=== PATIENT | female | born 1950 | race Caucasian/White ===

== ENCOUNTER → 2018-03-19 08:48 | Outpatient (POV) | payer MEDICARE, SELFPAY | PROVIDERS: Visit Provider Nurse Practitioner Acute Care | DX: Z00.00 Encounter for general adult medical examination without abnormal findings (principal) ==

== ENCOUNTER → 2018-11-20 08:49 | Outpatient (CLI) | payer MEDICARE, SELFPAY ==
--- NOTE | 2018-11-20 08:53 | XR_ITS ---
PROCEDURE: XR DEXA AXIAL SKELETON CLINICAL HISTORY: HEALING OF CLOSED FX LT HAND, POST MENOPAUSAL COMPARISON: No exams were available for comparison TECHNIQUE: FINDINGS: L1-L4 density is 1.463 grams/centimeters sq with a T-score of 2.4. The lowest hip density is in the right femoral neck at 0.979 grams/centimeters sq with a T-score of -0.4. Incidental note of lumbar scoliosis convex right IMPRESSION: Normal bone density with low fracture risk. Suggest follow-up exam in 2 years Dictated by: Corey Mcdonald MD 11/20/2018 10:08 Signed by: <Electronically signed by Corey Mcdonald MD in [place]> 11/20/2018 10:08
== END ==
PROVIDERS: PCP Family Medicine; Visit Provider Family Medicine
DX: Z78.0 Asymptomatic menopausal state (principal); S62.92XD Unspecified fracture of left hand, subsequent encounter for fracture with routine healing
CPT/HCPCS: 77080

== ENCOUNTER → 2018-11-21 12:30 | Outpatient (CLI) | payer MEDICARE, SELFPAY ==
[2018-11-22 11:02] LABS: Adenovirus F 40/41, stool Not Detected (NotDetected); Astrovirus Not Detected (NotDetected); Campylobacter Not Detected (NotDetected); Clostridium Difficile A/B, PCR Not Detected (NotDetected); Cryptosporidium Not Detected (NotDetected); Cyclospora Cayetanesis Not Detected (NotDetected); Entamoeba histolytica Not Detected (NotDetected); Enteroaggregative E coli Not Detected (NotDetected); Enteropathogenic E coli Not Detected (NotDetected); Enterotoxigenic E coli Not Detected (NotDetected); Giardia lamblia Not Detected (NotDetected); Norovirus Not Detected (NotDetected); Plesimonas Shigalloides, PCR Not Detected (NotDetected); Rotavirus A Not Detected (NotDetected); Salmonella, PCR Not Detected (NotDetected); Sapovirus Not Detected (NotDetected); Shiga-like toxin E coli Not Detected (NotDetected); Shigella Enterovasive E coli Not Detected (NotDetected); Vibrio Cholerae Not Detected (NotDetected); Vibrio, PCR Not Detected (NotDetected); Yersinia Entercolitica, PCR Not Detected (NotDetected)
== END ==
PROVIDERS: Visit Provider Nurse Practitioner Family
DX: R19.4 Change in bowel habit (principal); R19.7 Diarrhea, unspecified
CPT/HCPCS: 87506

== ENCOUNTER → 2018-12-31 15:37 | Outpatient (POV) | payer MEDICARE, SELFPAY | PROVIDERS: PCP Family Medicine; Visit Provider Nurse Practitioner Family | DX: Z00.00 Encounter for general adult medical examination without abnormal findings (principal) ==

== ENCOUNTER → 2019-04-08 11:47 | Outpatient (POV) | payer MEDICARE, SELFPAY | PROVIDERS: Visit Provider Nurse Practitioner Family | DX: Z00.00 Encounter for general adult medical examination without abnormal findings (principal) ==

== ENCOUNTER → 2019-09-09 07:15 | Outpatient (CLI) | payer MEDICARE, SELFPAY ==
--- NOTE | 2019-09-09 | CA_ITS ---
APPROVED REPORT Exam: Pharmacologic Technologist: ,, Ht: 5 ft 1 in Wt: 165 lbs BSA: 1.74 m2 HR: 49 bpm BP: 186/78 mmHg Indications: CP, SOB Medical History Medications: Omeprazole,,,,, Clonidine,,,,, Propranolol,,,,, Effexor,,,,, Estradiol,,,,, Tramadol,,,,, Tizanidine,,,,, Hydroxyzine,,,,, Xyzal,,,,, Geodon,,,,, Simvatatin,,,,, Allergies: Antibotics Cardiac Risk Factors: HTN, Hyperlipidemia, FHX of CAD Stress Test Details Test: LEXISCAN HR Resting HR: 48 bpm Max Heart Rate (APMHR): 150 bpm Max HR Achieved: 81 bpm Target HR (85% APMHR): 127 bpm % of APMHR: 54 Recovery HR: 71 bpm BP Resting BP: 186/78 mmHg Max BP: 190/79 mmHg Recovery BP: 159.0/78.0 mmHg ECG Resting ECG: Sinus Allan (Abn EKG) Clinical Exercise duration: 04:00 min Highest Stage Achieved: Exercise capacity: 1.0 METs Stress ECG Conclusion Lexiscan portion completed. Only complaint was SOB that resolved during recovery. No ectopy. Less than 1.5mm ST Depression. Images to follow. Electronically signed by : Jay Serra, 09/09/2019 18:25:39
--- NOTE | 2019-09-09 07:22 | NM_ITS ---
APPROVED REPORT Exam: Nuclear Stress Test Indication: Chest pain, SOB, HTN, High cholesterol, Family history Patient Location: Outpatient Stress Tech: Cheli Gutierres [place] Tech:Lorrie Garnett, ARRT, RT (R)(N) Ht: 5 ft 1 in Wt: 165 lbs Bra Size: 38C HR: 49 bpm BP: 186/78 mmHg BSA: 1.74 m2 BMI: 31.1 History: Chest pain, SOB, HTN, High cholesterol, Family history Procedure: Patient received a 0.4 mg of intravenous Lexiscan, resting heart rate 49 bpm, resting blood pressure 186/78 mmHg, with Lexiscan maximum heart rate achived was 80 bpm which is Less than 85 % of the maximum predicted heart rate and blood pressure was 144/74 mmHg. With Lexiscan, patient denied any complaint of chest pain. Electrocardiogram Resting electrocardiogram shows sinus rhythm, with Lexiscan there is less than 1.[address] segment depression noted from the baseline EKG. The EKG portion of the Lexiscan is nondiagnostic. Cardiac Stress and Resting SPECT Images: Cardiac Stress and Resting SPECT images were obtained using technetium 99m Myoview 31.4 mCi stress and 10.11 mCi at rest. Gated SPECT for the analysis of segmental wall motion and calculation of the ejection fraction also done. Cardiac stress and resting SPECT images show mild defect in the anterior wall with normal contractility gated SPECT is likely secondary to soft tissue attenuation, no reversible ischemia seen. Computer derived ejection fraction is 48% with no regional wall motion abnormality, right ventricle is normal size and contractility. Conclusion: 1. The EKG portion of the Lexiscan is Myoview is nondiagnostic. 2. No scintigraphic evidence of reversible ischemia seen, fixed defect in the anterior wall with normal contracted gated SPECT is likely secondary to soft tissue attenuation, computer derived ejection fraction is 48% with no segmental wall motion abnormality, right ventricle is normal size and contractility. 3. Likely normal Lexiscan Myoview study. Electronically signed by : Jay Serra, 09/09/2019 18:53:13
--- NOTE | 2019-09-09 07:44 | HMH.ITSHM ---
Current Home Medications as stated by this patient Jackie Cook or service liaison representative. []VENLAFAXINE VITAMINS LISINOPRIL ESTRADIOL CLONIDINE DOXEPIN LEVOCETIRIZINE ZIPROSIDONE HYDROXEZINE POTASSIUM PROPRANOLOL SIMVASTATIN TRAMADOL DICYCLOMINE TIZANIDINE FLUZICASONE
== END ==
PROVIDERS: PCP Family Medicine; Visit Provider Family Medicine
DX: R07.2 Precordial pain (principal)
CPT/HCPCS: 78454; 93017; A9502; J2785

== ENCOUNTER → 2021-05-19 09:45 | Outpatient (CLI) | payer MEDICARE, SELFPAY ==
--- NOTE | 2021-05-19 09:53 | XR_ITS ---
FINAL REPORT TECHNIQUE: Bone densitometry calculations of the lumbar spine and left hip were obtained. CLINICAL HISTORY: post menopausal FINDINGS: Using L1-4, the bone mineral density of the spine is 1.251 g/cm2, corresponding to T-score of 1.9. Using the left hip, the bone mineral density of the femoral neck is 0.884 g/cm2, corresponding to a T-score of 0.3. Using the right hip, the bone mineral density of the femoral neck is 0.882 g/cm2, corresponding to a T-score of 0.3. IMPRESSION: Normal bone mineral density of the lumbar spine and hips. Reviewed, Interpreted and Dictated by Yang Garvin III, MD Transcribed by Gena Mendez Authenticated by Yang Garvin III, MD on 05/19/2021 12:29:58 PM [facility]
== END ==
PROVIDERS: PCP Family Medicine; Visit Provider Family Medicine
DX: Z78.0 Asymptomatic menopausal state (principal)
CPT/HCPCS: 77080

== ENCOUNTER → 2021-09-22 07:21 | Outpatient (CLI) | payer MEDICARE, SELFPAY ==
[2021-09-21 19:46] LABS: Basophils # 0.1 K/mm3 (0-0.2); Basophils % 1.7 % (0.1-2.0); Eosinophils # 0.3 K/mm3 (0.0-0.4); Eosinophils % 5.5 % (0.1-12.0); Hematocrit 45.3 % (37.0-47.0); Hemoglobin 13.4 g/dL (12.2-16.2); Lymphocytes # 2.9 K/mm3 (0.7-4.5); Lymphocytes % 47.4 % (10-50); Mean Corpuscular HGB Conc 29.6 g/dL (31.8-35.4); Mean Corpuscular Hemoglobin 28.9 pg (27.0-31.2); Mean Corpuscular Volume 97.6 fl (81-99); Mean Platelet Volume 8.3 fl (7.4-10.4); Monocytes # 0.5 K/mm3 (0.1-1.0); Monocytes % 8.3 % (1.7-9.3); Neutrophils # 2.3 K/mm3 (1.8-7.8); Neutrophils % 37.2 % (37.0-80.0); Platelet Count 323 K/mm3 (142-424); Red Blood Count 4.64 M/mm3 (4.20-5.40); Red Cell Distribution Width 13.3 % (11.5-17.5); White Blood Count 6.1 K/mm3 (4.8-10.8)
[2021-09-21 20:11] LABS: Thyroid Stimulating Hormone 2.32 uIU/mL (0.465-4.68)
[2021-09-21 20:21] LABS: Hemoglobin A1C 6.1 % (4.0-6.0)
== END ==
PROVIDERS: PCP Nurse Practitioner; Visit Provider Nurse Practitioner
DX: E11.9 Type 2 diabetes mellitus without complications (principal); Z79.84 Long term (current) use of oral hypoglycemic drugs
CPT/HCPCS: 83036; 84443; 85025

== ENCOUNTER → 2021-10-01 09:10 | Outpatient (CLI) | payer MEDICARE, OTHER, SELFPAY ==
--- NOTE | 2021-10-01 09:12 | CA_ITS ---
FINAL REPORT CLINICAL HISTORY: postural dizziness with presyncope FINDINGS: An ultrasound of the carotid arteries was performed. Duplex Doppler evaluation with spectral analysis was performed. The peak systolic velocity of the right common carotid artery is 81 cm/s. The peak systolic velocity of the right internal carotid artery is 70 cm/s and end diastolic velocity 22 cm/s. A mild amount of plaque is present. The right external carotid artery is patent. The right vertebral artery is patent with antegrade flow. The peak systolic velocity of the left common carotid artery is 104 cm/s. The peak systolic velocity of the left internal carotid artery is 83 cm/s and end diastolic velocity 25 cm/s. A mild amount of plaque is present. The left external carotid artery is patent. The left vertebral artery is patent with antegrade flow. IMPRESSION: Less than 50% bilateral carotid stenoses. Bilateral patent vertebral arteries with antegrade flow. Reviewed, Interpreted and Dictated by Orlin Segal MD Transcribed by Umesh Medina Authenticated and [facility]
--- NOTE | 2021-10-01 09:12 | CA_ITS ---
APPROVED REPORT EXAM: Comprehensive 2D, Doppler, and color-flow Echocardiogram Material Planning Analyst: Larissa Hyatt RDCS Ht: 5 ft 1 in Wt: 144lbs BSA: 1.64 BP: 124/68 mmHg Indications: SYNCOPE,HTN,HLP 2D Dimensions LVOT 1.79 cm (M/F) 1.5-2.5 M-Mode Dimensions RVDd 2.50 cm (0.9-2.6) LA Diam 4.13 cm (1.9-4.0) LVDd 5.18 cm (3.5-5.7) Ao Diam 2.69 cm (2.0-3.7) LVDs 3.53 cm (3.5-5.7) IVSd 0.64 cm (0.6-1.1) PWd 0.75 cm (0.6-1.1) EF (Teich) 59.60% FS 31.90% EDV (Teich) 128.40 mL TAPSE 1.70 (<1.7) ESV (Teich) 51.90 mL LV Diastology E Decel Time 173.00 (160-240 msec) E/A Ratio 0.8 MED E' 7.20 (< 7 cm/sec) E'/MED E' Ratio 8.51 (>14) LAT E' 6.80 (<10 cm/sec) E/LAT E' Ratio 9.01 (>14) Mitral Valve MV E Max Jone. 61.00 (40-130 cm/s) MV A Velocity 79.00 (40-130 cm/s) E/A Ratio 0.77 MV Decel. Time 173.00 (160-240 ms) MV PHT 51.00 ms Left Ventricle Left atrium is mildly enlarged, left ventricle is normal size mild concentric left ventricular hypertrophy, estimated ejection fraction 55% with no regional wall motion abnormality, grade 1 diastolic dysfunction seen without tissue Doppler evidence of raise left atrial pressure. Right Ventricle Right atrium and right ventricle are normal size and contractility. Aortic Valve Aortic valve is minimally thickened and fibrosed there is no aortic stenosis aortic insufficiency. Mitral Valve Mitral valve leaflets are minimally thickened, there is mild mitral regurgitation. Tricuspid Valve Tricuspid valve grossly normal, there is mild tricuspid regurgitation, tricuspid regurgitation jet velocity is inadequate for calculation of the right ventricular systolic pressure. Pulmonic Valve Pulmonic valve is poorly visualized. Great Vessels Aortic root is normal size. Inferior vena cava is poorly visualized. Pericardium No significant pericardial effusion noted. Conclusion 1. Mildly enlarged left atrium, normal left ventricular size, mild concentric left ventricular hypertrophy, estimated ejection fraction 55% with no regional wall motion abnormality, grade 1 diastolic dysfunction seen without tissue Doppler evidence of raise left atrial pressure. 2. Mild mitral and tricuspid regurgitation. 3. No significant pericardial effusion noted. 4. Inferior vena cava is poorly visualized. Electronically signed by : Jay Serra MD 10/01/2021 15:14:12
== END ==
PROVIDERS: PCP Family Medicine; Visit Provider Nurse Practitioner
DX: R42 Dizziness and giddiness (principal); R55 Syncope and collapse
CPT/HCPCS: 93306; 93880

== ENCOUNTER → 2021-12-13 06:16 | Outpatient (CLI) | payer MEDICARE, SELFPAY | PROVIDERS: PCP Family Medicine; Visit Provider Family Medicine | DX: N30.90 Cystitis, unspecified without hematuria (principal); B96.1 Klebsiella pneumoniae [K. pneumoniae] as the cause of diseases classified elsewhere | CPT/HCPCS: 87086; 87088; 87186 ==

== ENCOUNTER → 2021-12-20 13:52 | Outpatient (CLI) | payer MEDICARE, SELFPAY | PROVIDERS: PCP Family Medicine; Visit Provider Family Medicine | DX: N39.0 Urinary tract infection, site not specified (principal); B96.1 Klebsiella pneumoniae [K. pneumoniae] as the cause of diseases classified elsewhere | CPT/HCPCS: 87086; 87088; 87186 ==

== ENCOUNTER → 2022-02-22 15:25 | Outpatient (CLI) | payer MEDICARE, SELFPAY ==
[2022-02-22 18:48] LABS: Adenovirus,PCR Not Detected (NotDetected); Bordetella Pertussis Not Detected (NotDetected); Chlamydophila Pneumoniae, PCR Not Detected (NotDetected); Coronavirus 19, PCR Not Detected (NotDetected); Coronavirus 229E Not Detected (NotDetected); Coronavirus NL63 Not Detected (NotDetected); Coronavirus OC43 Not Detected (NotDetected); Coronovirus HKU1,PCR Not Detected (NotDetected); Human Metapneumovirus Not Detected (NotDetected); Influenza A, PCR Not Detected (NotDetected); Influenza AH1, 2009 Not Detected (NotDetected); Influenza AH1, PCR Not Detected (NotDetected); Influenza AH3,PCR Not Detected (NotDetected); Influenza B, PCR Not Detected (NotDetected); Mycoplasma Pneumoniae, PCR Not Detected (NotDetected); Parainfluenza 1, PCR Not Detected (NotDetected); Parainfluenza 2, PCR Not Detected (NotDetected); Parainfluenza 3, PCR Not Detected (NotDetected); Parainfluenza 4, PCR Not Detected (NotDetected); Rhinovirus/Enterovirus Not Detected (NotDetected)
[2022-02-23 07:38] LABS: Respiratory Syncytial Virus Detected (NotDetected)
== END ==
PROVIDERS: PCP Nurse Practitioner; Visit Provider Nurse Practitioner
DX: J11.1 Influenza due to unidentified influenza virus with other respiratory manifestations (principal); B97.4 Respiratory syncytial virus as the cause of diseases classified elsewhere
CPT/HCPCS: 87581; 87632; 87798; C9803; U0003; U0005

== ENCOUNTER → 2022-02-28 10:30 | Outpatient (CLI) | payer MEDICARE, SELFPAY ==
[2022-02-28 20:33] LABS: Alanine Aminotransferase 18 U/L (12-78); Albumin Level 4.1 g/dl (3.5-5.0); Albumin/Globulin Ratio 1.9 (1.1-1.8); Alkaline Phosphatase 80 U/L (38-126); Anion Gap 12.3 mEq/L (5-15); Aspartate Amino Transferase 29 U/L (14-36); Bilirubin,Total 0.4 mg/dl (0.2-1.3); Blood Urea Nitrogen 20 mg/dl (7-17); Calcium 9.7 mg/dl (8.4-10.2); Carbon Dioxide 26 mmol/L (22.0-30.0); Chloride 106 mmol/L (98-107); Chol/HDL Ratio 4.2 (1-3.5); Cholesterol 123 mg/dl (140-200); Estimated Glomerular Filt Rate 49 ml/min (>60); GFR (African American) 59 ML/MIN (>60); Globulin 2.2 g/dL (1.3-3.2); Glucose 99 mg/dl (74-100); HDL Cholesterol 29 mg/dl (40-60); Potassium 4.3 mmoL/L (3.5-5.1); Sodium 140 mmol/L (136-145); Total Protein,Serum 6.3 g/dl (6.3-8.2); Triglycerides 165 mg/dl (30-150); VLDL Cholesterol 33 mg/dL (0-40)
[2022-02-28 20:44] LABS: Direct LDL Cholesterol 60.53 mg/dL (100-129)
[2022-02-28 20:57] LABS: Hemoglobin A1C 6.3 % (4.0-6.0)
[2022-02-28 21:04] LABS: Thyroid Stimulating Hormone 0.16 uIU/mL (0.465-4.68)
== END ==
PROVIDERS: PCP Family Medicine; Visit Provider Family Medicine
DX: F41.8 Other specified anxiety disorders (principal); I10 Essential (primary) hypertension; Z00.00 Encounter for general adult medical examination without abnormal findings; E11.9 Type 2 diabetes mellitus without complications; Z79.84 Long term (current) use of oral hypoglycemic drugs
CPT/HCPCS: 80053; 80061; 83036; 84443

== ENCOUNTER → 2022-03-30 11:15 | Outpatient (CLI) | payer MEDICARE, SELFPAY | PROVIDERS: PCP Nurse Practitioner; Visit Provider Nurse Practitioner | DX: N39.0 Urinary tract infection, site not specified (principal); B95.2 Enterococcus as the cause of diseases classified elsewhere | CPT/HCPCS: 87086; 87088; 87186 ==

== ENCOUNTER → 2022-04-14 07:05 | Outpatient (CLI) | payer MEDICARE, SELFPAY | PROVIDERS: PCP Nurse Practitioner; Visit Provider Nurse Practitioner | DX: N10 Acute pyelonephritis (principal) ==

== ENCOUNTER → 2022-04-14 20:14 | Outpatient (CLI) | payer MEDICARE, SELFPAY ==
[2022-04-14 20:31] LABS: Microscopic, Urine URINE MICROSCOPIC (MICROSCOPIC)
[2022-04-14 20:34] LABS: Appearance,Urine CLEAR (Clear); Bilirubin,Urine Negative (Negative); Blood, Urine Negative (Negative); Color,Urine YELLOW (Yellow); Glucose,Urine (UA) 3+ (Negative); Ketones,Urine Negative (Negative); Leukocyte Esterase,Urine 1+ (Negative); Nitrate,Urine Negative (Negative); PH,Urine 6.5 (5.0-8.5); Protein,Urine Negative (Negative); Specific Gravity, Urine 1.015 (1.005-1.030); Urobilinogen,Urine 0.2 EU/dl (0.2)
[2022-04-14 21:00] LABS: Bacteria,Urine 3+ /lpf; Squamous Epithelial Cell,Urine Occasional #/hpf (0-5); Yeast,Urine 1+ /lpf
== END ==
PROVIDERS: PCP Nurse Practitioner; Visit Provider Nurse Practitioner
DX: N10 Acute pyelonephritis (principal); B96.29 Other Escherichia coli [E. coli] as the cause of diseases classified elsewhere
CPT/HCPCS: 81001; 87086; 87088; 87186

== ENCOUNTER → 2022-05-03 23:23 | Outpatient (CLI) | payer MEDICARE, SELFPAY | PROVIDERS: PCP Nurse Practitioner; Visit Provider Nurse Practitioner | DX: R30.0 Dysuria (principal); B96.29 Other Escherichia coli [E. coli] as the cause of diseases classified elsewhere | CPT/HCPCS: 87086; 87088; 87186 ==

== ENCOUNTER → 2022-05-18 15:17 | Outpatient (CLI) | payer MEDICARE, SELFPAY ==
[2022-05-18 18:20] LABS: Microscopic, Urine URINE MICROSCOPIC (MICROSCOPIC)
[2022-05-18 22:26] LABS: Appearance,Urine CLEAR (Clear); Bilirubin,Urine Negative (Negative); Blood, Urine Negative (Negative); Color,Urine YELLOW (Yellow); Glucose,Urine (UA) 3+ (Negative); Ketones,Urine Negative (Negative); Leukocyte Esterase,Urine TRACE (Negative); Nitrate,Urine Negative (Negative); Protein,Urine Negative (Negative); Urobilinogen,Urine 0.2 EU/dl (0.2)
[2022-05-18 22:47] LABS: Bacteria,Urine Trace /lpf; Yeast,Urine 1+ /lpf
== END ==
PROVIDERS: PCP Family Medicine; Visit Provider Family Medicine
DX: N39.0 Urinary tract infection, site not specified (principal); R30.0 Dysuria
CPT/HCPCS: 81001; 87086

== ENCOUNTER → 2022-06-01 23:49 | Outpatient (CLI) | payer MEDICARE, SELFPAY | PROVIDERS: PCP Nurse Practitioner; Visit Provider Nurse Practitioner | DX: N30.90 Cystitis, unspecified without hematuria (principal); B96.29 Other Escherichia coli [E. coli] as the cause of diseases classified elsewhere | CPT/HCPCS: 87086; 87088; 87186 ==

== ENCOUNTER → 2022-06-15 11:30 | Outpatient (CLI) | payer MEDICARE, SELFPAY | PROVIDERS: PCP Nurse Practitioner; Visit Provider Nurse Practitioner | DX: N39.0 Urinary tract infection, site not specified (principal); B96.29 Other Escherichia coli [E. coli] as the cause of diseases classified elsewhere | CPT/HCPCS: 87086; 87088; 87186 ==

== ENCOUNTER → 2022-07-22 15:15 | Outpatient (CLI) | payer MEDICARE, SELFPAY | PROVIDERS: PCP Family Medicine; Visit Provider Family Medicine | DX: N39.0 Urinary tract infection, site not specified (principal); B96.1 Klebsiella pneumoniae [K. pneumoniae] as the cause of diseases classified elsewhere | CPT/HCPCS: 87086; 87088; 87186 ==

== ENCOUNTER → 2022-08-22 11:13 | Outpatient (CLI) | payer MEDICARE, SELFPAY | PROVIDERS: PCP Nurse Practitioner; Visit Provider Nurse Practitioner | DX: N39.0 Urinary tract infection, site not specified (principal) ==

== ENCOUNTER → 2022-11-30 08:39 | Outpatient (CLI) | payer MEDICARE, SELFPAY ==
[2022-11-11 18:06] LABS: Basophils # 0.1 K/mm3 (0-0.2); Basophils % 0.7 % (0.1-2.0); Eosinophils # 0.3 K/mm3 (0.0-0.4); Eosinophils % 4.1 % (0.1-12.0); Hemoglobin 13.7 g/dL (12.2-16.2); Lymphocytes # 3.2 K/mm3 (0.7-4.5); Lymphocytes % 47.6 % (10-50); Mean Corpuscular HGB Conc 32.5 g/dL (31.8-35.4); Mean Corpuscular Hemoglobin 30.5 pg (27.0-31.2); Mean Platelet Volume 8.5 fl (7.4-10.4); Monocytes # 0.6 K/mm3 (0.1-1.0); Monocytes % 8.9 % (1.7-9.3); Neutrophils # 2.6 K/mm3 (1.8-7.8); Neutrophils % 38.8 % (37.0-80.0); Platelet Count 319 K/mm3 (142-424); Red Blood Count 4.47 M/mm3 (4.20-5.40); Red Cell Distribution Width 13.3 % (11.5-17.5); White Blood Count 6.6 K/mm3 (4.8-10.8)
[2022-11-11 18:26] LABS: Alanine Aminotransferase 23 U/L (12-78); Albumin Level 4.5 g/dl (3.5-5.0); Alkaline Phosphatase 66 U/L (38-126); Aspartate Amino Transferase 36 U/L (14-36); Bilirubin,Total 0.4 mg/dl (0.2-1.3); Blood Urea Nitrogen 25 mg/dl (7-17); Calcium 9.7 mg/dl (8.4-10.2); Carbon Dioxide 28 mmol/L (22.0-30.0); Chloride 103 mmol/L (98-107); Chol/HDL Ratio 4.1 (1-3.5); Cholesterol 157 mg/dl (140-200); Estimated Glomerular Filt Rate 37 ml/min (>60); GFR (African American) 45 ML/MIN (>60); Globulin 2.3 g/dL (1.3-3.2); Glucose 61 mg/dl (74-100); HDL Cholesterol 38 mg/dl (40-60); Sodium 142 mmol/L (136-145); Total Protein,Serum 6.8 g/dl (6.3-8.2); Triglycerides 140 mg/dl (30-150); VLDL Cholesterol 28 mg/dL (0-40)
[2022-11-11 18:37] LABS: Direct LDL Cholesterol 87.47 mg/dL (100-129)
[2022-11-11 19:12] LABS: Hemoglobin A1C 5.7 % (4.0-6.0)
== END ==
PROVIDERS: PCP Family Medicine; Visit Provider Family Medicine
DX: E11.9 Type 2 diabetes mellitus without complications (principal); Z79.84 Long term (current) use of oral hypoglycemic drugs
CPT/HCPCS: 80053; 80061; 83036; 85025

== ENCOUNTER → 2022-12-08 23:35 | Outpatient (CLI) | payer MEDICARE, SELFPAY ==
[2022-12-08 20:15] LABS: T4 (Thyroxine) 7.5 ug/dl (5.53-11.0)
[2022-12-08 20:29] LABS: Thyroid Stimulating Hormone 0.13 uIU/mL (0.465-4.68)
== END ==
PROVIDERS: PCP Family Medicine; Visit Provider Family Medicine
DX: F41.8 Other specified anxiety disorders (principal)
CPT/HCPCS: 84436; 84443

== ENCOUNTER → 2023-03-06 07:03 | Outpatient (CLI) | payer MEDICARE, SELFPAY ==
[2023-03-06 19:01] LABS: Free T4 (Free Thyroxine) 1.04 ng/dl (0.78-2.19)
[2023-03-06 19:16] LABS: Thyroid Stimulating Hormone 0.03 uIU/mL (0.465-4.68)
[2023-03-08 08:17] LABS: Thyroid Peroxidase Antibodies 14 IU/mL (0-34); Triiodothyronine (T3) Free 2.5 pg/mL (2.0-4.4); Triiodothyronine (T3) Total 100 ng/dL (71-180)
== END ==
PROVIDERS: PCP Nurse Practitioner; Visit Provider Nurse Practitioner
DX: R41.3 Other amnesia (principal); R79.89 Other specified abnormal findings of blood chemistry; J06.9 Acute upper respiratory infection, unspecified; U07.1 COVID-19
CPT/HCPCS: 84439; 84443; 84480; 84481; 86376; 87635

== ENCOUNTER 2023-08-03 10:00 | Outpatient (CLI) | payer MEDICARE, SELFPAY ==
[2023-08-03 18:11] LABS: Basophils # 0.1 K/mm3 (0-0.2); Basophils % 0.8 % (0.1-2.0); Eosinophils # 0.3 K/mm3 (0.0-0.4); Eosinophils % 3.5 % (0.1-12.0); Hematocrit 35.9 % (37.0-47.0); Hemoglobin 11.6 g/dL (12.2-16.2); Lymphocytes # 2.6 K/mm3 (0.7-4.5); Lymphocytes % 33.3 % (10-50); Mean Corpuscular HGB Conc 32.5 g/dL (31.8-35.4); Mean Corpuscular Hemoglobin 30.6 pg (27.0-31.2); Mean Corpuscular Volume 94.3 fl (81-99); Mean Platelet Volume 8.1 fl (7.4-10.4); Monocytes # 0.6 K/mm3 (0.1-1.0); Monocytes % 7.2 % (1.7-9.3); Neutrophils # 4.3 K/mm3 (1.8-7.8); Neutrophils % 55.2 % (37.0-80.0); Platelet Count 297 K/mm3 (142-424); Red Cell Distribution Width 15.2 % (11.5-17.5); White Blood Count 7.7 K/mm3 (4.8-10.8)
[2023-08-03 18:45] LABS: Alanine Aminotransferase 20 U/L (12-78); Albumin/Globulin Ratio 1.9 (1.1-1.8); Alkaline Phosphatase 67 U/L (38-126); Anion Gap 12.1 mEq/L (5-15); Aspartate Amino Transferase 29 U/L (14-36); Bilirubin,Total 0.4 mg/dl (0.2-1.3); Blood Urea Nitrogen 21 mg/dl (7-17); Calcium 9.6 mg/dl (8.4-10.2); Carbon Dioxide 25 mmol/L (22.0-30.0); Chloride 105 mmol/L (98-107); Chol/HDL Ratio 2.9 (1-3.5); Cholesterol 152 mg/dl (140-200); Estimated Glomerular Filt Rate 49 ml/min (>60); GFR (African American) 59 ML/MIN (>60); Globulin 2.1 g/dL (1.3-3.2); Glucose 119 mg/dl (74-100); HDL Cholesterol 53 mg/dl (40-60); Potassium 4.1 mmoL/L (3.5-5.1); Sodium 138 mmol/L (136-145); Total Protein,Serum 6.1 g/dl (6.3-8.2); Triglycerides 121 mg/dl (30-150); VLDL Cholesterol 24 mg/dL (0-40)
[2023-08-03 18:56] LABS: Direct LDL Cholesterol 82.34 mg/dL (100-129)
[2023-08-03 19:01] LABS: T4 (Thyroxine) 6.9 ug/dl (5.53-11.0)
[2023-08-03 19:14] LABS: Thyroid Stimulating Hormone 0.02 uIU/mL (0.465-4.68)
[2023-08-03 20:47] LABS: Hemoglobin A1C 5.9 % (4.0-6.0)
== END 2023-08-03 23:59 | disposition home or self-care (01) ==
LOC: LAB.DROPOF 08-04 10:00
PROVIDERS: PCP Family Medicine; Visit Provider Family Medicine
DX: I10 Essential (primary) hypertension (principal); E11.9 Type 2 diabetes mellitus without complications; E78.2 Mixed hyperlipidemia; R79.89 Other specified abnormal findings of blood chemistry; Z79.84 Long term (current) use of oral hypoglycemic drugs; Z87.891 Personal history of nicotine dependence
CPT/HCPCS: 80053; 80061; 83036; 84436; 84443; 85025

== ENCOUNTER 2023-10-09 19:27 | Outpatient (CLI) | payer MEDICARE, SELFPAY ==
[2023-10-09 19:28] LABS: Basophils # 0.1 K/mm3 (0-0.2); Basophils % 0.9 % (0.1-2.0); Eosinophils # 0.2 K/mm3 (0.0-0.4); Eosinophils % 2.8 % (0.1-12.0); Hematocrit 39.3 % (37.0-47.0); Hemoglobin 12.8 g/dL (12.2-16.2); Lymphocytes % 43.1 % (10-50); Mean Corpuscular HGB Conc 32.4 g/dL (31.8-35.4); Mean Corpuscular Hemoglobin 31.2 pg (27.0-31.2); Mean Corpuscular Volume 96.2 fl (81-99); Mean Platelet Volume 8.6 fl (7.4-10.4); Monocytes # 0.6 K/mm3 (0.1-1.0); Monocytes % 8.8 % (1.7-9.3); Neutrophils # 3.1 K/mm3 (1.8-7.8); Neutrophils % 44.4 % (37.0-80.0); Platelet Count 344 K/mm3 (142-424); Red Blood Count 4.09 M/mm3 (4.20-5.40); Red Cell Distribution Width 14.5 % (11.5-17.5)
[2023-10-09 19:36] LABS: Alanine Aminotransferase 17 U/L (12-78); Albumin Level 4.2 g/dl (3.5-5.0); Albumin/Globulin Ratio 1.9 (1.1-1.8); Alkaline Phosphatase 59 U/L (38-126); Anion Gap 11.5 mEq/L (5-15); Aspartate Amino Transferase 26 U/L (14-36); Bilirubin,Total 0.5 mg/dl (0.2-1.3); Blood Urea Nitrogen 24 mg/dl (7-17); Calcium 9.8 mg/dl (8.4-10.2); Carbon Dioxide 25 mmol/L (22.0-30.0); Chloride 106 mmol/L (98-107); Estimated Glomerular Filt Rate 44 ml/min (>60); GFR (African American) 53 ML/MIN (>60); Globulin 2.2 g/dL (1.3-3.2); Glucose 99 mg/dl (74-100); Potassium 4.5 mmoL/L (3.5-5.1); Sodium 138 mmol/L (136-145); Total Protein,Serum 6.4 g/dl (6.3-8.2)
[2023-10-09 20:01] LABS: Thyroid Stimulating Hormone < 0.02 uIU/mL (0.465-4.68)
[2023-10-09 20:49] LABS: Hemoglobin A1C 5.8 % (4.0-6.0)
== END 2023-10-09 23:59 | disposition home or self-care (01) ==
LOC: LAB 19:29
PROVIDERS: PCP Nurse Practitioner; Visit Provider Nurse Practitioner
DX: E11.9 Type 2 diabetes mellitus without complications (principal); I10 Essential (primary) hypertension; R30.0 Dysuria; R42 Dizziness and giddiness
CPT/HCPCS: 80050; 80053; 83036; 84443; 85025; 87086

== ENCOUNTER 2024-02-05 13:52 | Emergency (ER) | payer MEDICARE, SELFPAY ==
--- NOTE | 2024-02-05 13:58 | CT_ITS ---
PROCEDURE INFORMATION: Exam: CT Thoracic Spine Without Contrast Exam date and time: 02/05/2024 3:24 PM Age: 73 years old Clinical indication: Injury or trauma; Additional info: Trauma, critical injury suspected TECHNIQUE: Imaging protocol: Computed tomography of the thoracic spine without contrast. Total images: 281 Radiation optimization: All CT scans at this facility use at least one of these dose optimization techniques: automated exposure control; mA and/or kV adjustment per patient size (includes targeted exams where dose is matched to clinical indication); or iterative reconstruction. COMPARISON: CT THORACIC SPINE WO CON 02/05/2024 3:24 PM FINDINGS: Bones/joints: Moderate degenerative changes of the thoracic spine. No evidence of acute fracture. Disc space narrowing and hypertrophic bony changes noted anteriorly at all visualized levels. Slight leftward curvature of the thoracic spine. Soft tissues: Unremarkable. IMPRESSION: 1. Moderate degenerative changes of the thoracic spine. 2. No evidence of acute fracture. 3. Disc space narrowing and hypertrophic bony changes noted anteriorly at all visualized levels.
--- NOTE | 2024-02-05 13:58 | CT_ITS ---
PROCEDURE INFORMATION: Exam: CTA Chest With Contrast Exam date and time: 02/05/2024 3:40 PM Age: 73 years old Clinical indication: Injury or trauma; Additional info: Trauma, critical injury suspected TECHNIQUE: Imaging protocol: Computed tomographic angiography of the chest with contrast. Exam focused on the arteries. 3D rendering (Not supervised by radiologist): MIP and/or 3D reconstructed images were created by the technologist. Total images: 990 Radiation optimization: All CT scans at this facility use at least one of these dose optimization techniques: automated exposure control; mA and/or kV adjustment per patient size (includes targeted exams where dose is matched to clinical indication); or iterative reconstruction. Contrast material: ISOVUE 370; Contrast volume: 80 ml; Contrast route: INTRAVENOUS (IV); COMPARISON: CT ANGIO ABDOMEN PELVIS 02/05/2024 3:40 PM FINDINGS: Pulmonary arteries: No evidence of pulmonary embolism. Aorta: No evidence of aortic dissection. Other arteries: Mild atherosclerotic disease. Lungs: Unremarkable. No consolidation. No masses. Pleural spaces: No evidence of pneumothorax. No pleural effusions. Heart: Unremarkable. No cardiomegaly. No pericardial effusion. Coronary arteries: There is mild atherosclerotic calcification of the coronary arteries. Lymph nodes: Calcified hilar lymph nodes noted bilaterally. Intraperitoneal space: Abdominal findings reported separately. Bones/joints: Postoperative changes of the left shoulder. The thoracic spine demonstrates moderate degenerative changes at multiple levels. Soft tissues: Unremarkable. IMPRESSION: 1. No evidence of pulmonary embolism. 2. No evidence of aortic dissection.
--- NOTE | 2024-02-05 13:58 | CT_ITS ---
PROCEDURE INFORMATION: Exam: CTA Neck With Contrast Exam date and time: 02/05/2024 3:34 PM Age: 73 years old Clinical indication: Injury or trauma; Additional info: Trauma, critical injury suspected TECHNIQUE: Imaging protocol: Computed tomographic angiography of the neck with contrast. Exam focused on the cervical segments of the vasculature. 3D rendering (Not supervised by radiologist): MIP and/or 3D reconstructed images were created by the technologist. Radiation optimization: All CT scans at this facility use at least one of these dose optimization techniques: automated exposure control; mA and/or kV adjustment per patient size (includes targeted exams where dose is matched to clinical indication); or iterative reconstruction. Contrast material: ISOVUE 370; Contrast volume: 80 ml; Contrast route: INTRAVENOUS (IV); COMPARISON: CT ANGIO NECK 02/05/2024 3:34 PM FINDINGS: Right common carotid artery: No stenosis. No dissection or occlusion. Right internal carotid artery: No stenosis of the extracranial segment. No dissection or occlusion. Right external carotid artery: No occlusion or stenosis of the origin. Left common carotid artery: No stenosis. No dissection or occlusion. Left internal carotid artery: No stenosis of the extracranial segment. No dissection or occlusion. Left external carotid artery: No occlusion or stenosis of the origin. Right vertebral artery: No stenosis. No dissection or occlusion. Left vertebral artery: No stenosis. No dissection or occlusion. Other arteries: The vessels in the chest will be discussed in better detail on the CT angio chest examination. Please see that report. Soft tissues: Normal. No significant soft tissue swelling. Bones/joints: No acute fracture. Lungs: The lung apices will be discussed in the CT angiogram chest report. Please see that dictation. IMPRESSION: No stenosis or occlusion. REFERENCES: NASCET CRITERIA. The degree of stenosis in the cervical segment of the internal carotid artery is based on NASCET criteria. Normal is no stenosis. Mild is less than 50% stenosis. Moderate is 50-69% stenosis. Severe is 70% to 99% stenosis. Total occlusion is no detectable patent lumen.
--- NOTE | 2024-02-05 13:58 | CT_ITS ---
PROCEDURE INFORMATION: Exam: CT Lumbar Spine Without Contrast Exam date and time: 02/05/2024 3:27 PM Age: 73 years old Clinical indication: Injury or trauma; Additional info: Trauma, critical injury suspected TECHNIQUE: Imaging protocol: Computed tomography of the lumbar spine without contrast. Total images: 368 Radiation optimization: All CT scans at this facility use at least one of these dose optimization techniques: automated exposure control; mA and/or kV adjustment per patient size (includes targeted exams where dose is matched to clinical indication); or iterative reconstruction. COMPARISON: CT LUMBAR SPINE WO CON 02/05/2024 3:27 PM FINDINGS: Bones/joints: Rightward curvature of the lumbar spine. The lumbar spine demonstrates moderate degenerative changes at multiple levels. Grade 1 spondylolisthesis of L4 on L5. Moderate disc space narrowing noted at all visualized levels. No evidence of acute fracture. Vasculature: Mild atherosclerotic disease. Soft tissues: Posterior soft tissue hematoma noted within the left posterior soft tissues. IMPRESSION: 1. Rightward curvature of the lumbar spine. 2. The lumbar spine demonstrates moderate degenerative changes at multiple levels. 3. Grade 1 spondylolisthesis of L4 on L5. 4. No evidence of acute fracture. 5. Posterior soft tissue hematoma noted within the left posterior soft tissues.
--- NOTE | 2024-02-05 13:58 | CT_ITS ---
PROCEDURE INFORMATION: Exam: CT Cervical Spine Without Contrast Exam date and time: 02/05/2024 3:20 PM Age: 73 years old Clinical indication: Injury or trauma; Additional info: Trauma, critical injury suspected TECHNIQUE: Imaging protocol: Computed tomography of the cervical spine without contrast. Radiation optimization: All CT scans at this facility use at least one of these dose optimization techniques: automated exposure control; mA and/or kV adjustment per patient size (includes targeted exams where dose is matched to clinical indication); or iterative reconstruction. COMPARISON: 1. CT CERVICAL SPINE WO CON 02/05/2024 3:[address] HEAD/BRAIN WO CON 02/05/2024 3:17 PM FINDINGS: Bones: Fracture through the floor of the left occipital bone which intersects the posterior aspect of the left jugular foramen as noted on the earlier CT brain redemonstrated.. This fracture also extends to the posterior left side of the foramen magnum and also extends through the clivus. No other fracture of the cervical spine identified. Advanced degenerative changes at the C3-C4 through C5-C6 level with bulging disc spur complexes and cabgopfa-[id number] central canal narrowing noted. Vertebral body heights intact. Lungs: Lung apices are normal. Soft tissues: Unremarkable. IMPRESSION: 1. Basilar skull fractures involving the left occipital bone including the left jugular foramen and extending through the clivus noted. No other cervical fracture identified. 2. Advanced degenerative changes with multilevel [id number]-[id number]-[id number] central canal narrowing.
--- NOTE | 2024-02-05 13:58 | XR_ITS ---
PROCEDURE INFORMATION: Exam: XR Pelvis Exam date and time: 02/05/2024 3:51 PM Age: 73 years old Clinical indication: Injury or trauma; Fall; Blunt trauma (contusions or hematomas); Does not apply; Pelvic region TECHNIQUE: Imaging protocol: Radiologic exam of the pelvis. Views: 1 or 2 view. COMPARISON: CT ANGIO ABDOMEN PELVIS 02/05/2024 3:40 PM FINDINGS: Bones/joints: Unremarkable. No acute fracture. Soft tissues: Unremarkable. IMPRESSION: No acute findings.
--- NOTE | 2024-02-05 13:58 | CT_ITS ---
PROCEDURE INFORMATION: Exam: CTA Abdomen and Pelvis With Contrast Exam date and time: 02/05/2024 3:40 PM Age: 73 years old Clinical indication: Injury or trauma; Additional info: Trauma, critical injury suspected TECHNIQUE: Imaging protocol: Computed tomographic angiography of the abdomen and pelvis with contrast. Exam focused on the arteries. 3D rendering (Not supervised by radiologist): MIP and/or 3D reconstructed images were created by the technologist. Total images: 990 Radiation optimization: All CT scans at this facility use at least one of these dose optimization techniques: automated exposure control; mA and/or kV adjustment per patient size (includes targeted exams where dose is matched to clinical indication); or iterative reconstruction. Contrast material: ISOVUE 370; Contrast volume: 80 ml; Contrast route: INTRAVENOUS (IV); COMPARISON: CT ANGIO ABDOMEN PELVIS 02/05/2024 3:40 PM FINDINGS: Diaphragm: Small hiatal hernia. Aorta: No evidence of aortic dissection. Celiac trunk and mesenteric arteries: No occlusion or significant stenosis. Renal arteries: No occlusion or significant stenosis. Right iliac arteries: No occlusion or significant stenosis. Left iliac arteries: No occlusion or significant stenosis. Liver: There is a diffuse decrease in hepatic parenchymal density, consistent with mild fatty infiltration. Gallbladder and biliary ducts: Status post cholecystectomy. Pancreas: Unremarkable. No mass. No ductal dilation. Spleen: Unremarkable. No splenomegaly. Adrenal glands: Unremarkable. No mass. Kidneys and ureters: Unremarkable. No solid mass. No hydronephrosis. Stomach and bowel: Large amount of stool is present throughout the colon. Appendix: No evidence of appendicitis. Intraperitoneal space: Unremarkable. No free air. No significant fluid collection. Lymph nodes: No mesenteric or retroperitoneal lymphadenopathy. Urinary bladder: Unremarkable. No mass. Reproductive: Unremarkable as visualized. Bones/joints: Rightward curvature of the lumbar spine with degenerative changes. Grade 1 spondylolisthesis of L4 on L5. Soft tissues: 3.2 cm hematoma noted within the right gluteus muscle with soft tissue edematous changes also noted. IMPRESSION: 1. No evidence of aortic dissection. 2. There is a diffuse decrease in hepatic parenchymal density, consistent with mild fatty infiltration. 3. No mesenteric or retroperitoneal lymphadenopathy. 4. 3.2 cm hematoma noted within the right gluteus muscle with soft tissue edematous changes also noted. 5. Grade 1 spondylolisthesis of L4 on L5.
--- NOTE | 2024-02-05 13:58 | CT_ITS ---
PROCEDURE INFORMATION: Exam: CT Pelvis Without Contrast, Skeleton Exam date and time: 02/05/2024 3:31 PM Age: 73 years old Clinical indication: Injury or trauma; Additional info: Trauma, critical injury suspected TECHNIQUE: Imaging protocol: Computed tomography of the pelvis without contrast. Exam focused on the skeleton. Total images: 324 Radiation optimization: All CT scans at this facility use at least one of these dose optimization techniques: automated exposure control; mA and/or kV adjustment per patient size (includes targeted exams where dose is matched to clinical indication); or iterative reconstruction. COMPARISON: CT BONY PELVIS 02/05/2024 3:31 PM FINDINGS: Bones/joints: No evidence of acute fracture or dislocation. Degenerative changes of both hips. Degenerative changes of both SI joints. Surgical clip noted within the left superior pubic ramus. Soft tissues: Posterior soft tissue hematoma noted on the left. IMPRESSION: 1. No evidence of acute fracture or dislocation. 2. Degenerative changes of both hips. 3. Posterior soft tissue hematoma noted on the left.
--- NOTE | 2024-02-05 13:58 | XR_ITS ---
PROCEDURE INFORMATION: Exam: XR Chest Exam date and time: 02/05/2024 3:51 PM Age: 73 years old Clinical indication: Injury or trauma; Fall; Blunt trauma (contusions or hematomas) TECHNIQUE: Imaging protocol: Radiologic exam of the chest. Views: 1 view. Total images: 1 COMPARISON: CT ANGIO CHEST 02/05/2024 3:40 PM FINDINGS: Lungs: Mild interstitial prominence bilaterally. Pleural spaces: No evidence of pneumothorax. No pleural effusions. Heart/Mediastinum: Heart demonstrates mild diffuse enlargement. Bones/joints: Postoperative changes of the left shoulder. Degenerative changes of the glenohumeral and acromioclavicular joints. The thoracic spine demonstrates mild degenerative changes at multiple levels. IMPRESSION: 1. Mild cardiomegaly. 2. Mild interstitial prominence bilaterally. 3. Degenerative changes of the glenohumeral and acromioclavicular joints.
--- NOTE | 2024-02-05 13:58 | CT_ITS ---
PROCEDURE INFORMATION: Exam: CT Head Without Contrast Exam date and time: 02/05/2024 3:17 PM Age: 73 years old Clinical indication: Injury or trauma; Additional info: Trauma, critical injury suspected TECHNIQUE: Imaging protocol: Computed tomography of the head without contrast. Radiation optimization: All CT scans at this facility use at least one of these dose optimization techniques: automated exposure control; mA and/or kV adjustment per patient size (includes targeted exams where dose is matched to clinical indication); or iterative reconstruction. COMPARISON: No relevant prior studies available. FINDINGS: Brain: There is subarachnoid hemorrhage as well as subdural hemorrhage involving the left frontal region as well as the right frontal and temporal regions. Subdural hematomas extending along the right small amount of intraparenchymal hemorrhage is seen involving the right frontal and lobes measuring up to 6 mm. Small amount of subdural blood is noted on the left measuring 3 mm thick. This is within the frontal region. Small amount of blood does extend to the anterior part of the interhemispheric fissure. Mild to moderate atrophy and small-vessel ischemic disease is noted. Cerebral ventricles: There is 1 mm of leftward midline shift with no intraventricular blood. Paranasal sinuses: Visualized sinuses are unremarkable. No fluid levels. Mastoid air cells: Visualized mastoid air cells are well aerated. Bones: There is a fracture noted involving the left occipital bone. Soft tissues: There is diffuse scalp hemorrhage superficial to the occipital bone fracture. IMPRESSION: 1. Intracranial hemorrhage in the form of subdural, intraparenchymal and subarachnoid blood. This is more extensive on the right than the left. 2. Left occipital bone skull fracture. 3. Trace midline shift to the left.
--- NOTE | 2024-02-05 13:58 | CT_ITS ---
PROCEDURE INFORMATION: Exam: CTA Head With Contrast, Arteriography Exam date and time: 02/05/2024 3:34 PM Age: 73 years old Clinical indication: Injury or trauma; Additional info: Trauma, critical injury suspected TECHNIQUE: Imaging protocol: Computed tomographic angiography of the head with contrast. Exam focused on the arteries. 3D rendering (Not supervised by radiologist): MIP and/or 3D reconstructed images were created by the technologist. Radiation optimization: All CT scans at this facility use at least one of these dose optimization techniques: automated exposure control; mA and/or kV adjustment per patient size (includes targeted exams where dose is matched to clinical indication); or iterative reconstruction. Contrast material: ISOVUE 370; Contrast volume: 80 ml; Contrast route: INTRAVENOUS (IV); COMPARISON: CT ANGIO HEAD 02/05/2024 3:34 PM FINDINGS: ANTERIOR CIRCULATION: Right internal carotid artery: A small focal posttraumatic injury to the intra cavernous portion of the right internal carotid artery is suggested on image 2/335 06/16/2036. Also image 602/49 with a small pseudoaneurysm question extending laterally measuring 1.3 mm deep and 3.3 mm in length. Wall irregularity is identified involving the posterior aspect of the wall. A small pseudoaneurysm is question just posterior to the wall injury. Right middle cerebral artery: No occlusion or significant stenosis. No aneurysm. Right anterior cerebral artery: No occlusion or significant stenosis. No aneurysm. Left internal carotid artery: Intracranial segment is patent with no significant stenosis. No aneurysm. Left middle cerebral artery: No occlusion or significant stenosis. No aneurysm. Left anterior cerebral artery: No occlusion or significant stenosis. No aneurysm. POSTERIOR CIRCULATION: Right vertebral artery: No occlusion or significant stenosis. No aneurysm. Left vertebral artery: No occlusion or significant stenosis. No aneurysm. Basilar artery: No occlusion or significant stenosis. No aneurysm. Right posterior cerebral artery: No occlusion or significant stenosis. No aneurysm. Left posterior cerebral artery: There is a moderate to severe stenosis involving the P1 segment of the left posterior cerebral artery. Brain: Please see the head CT. Cerebral ventricles: No ventriculomegaly. Bones/joints: Unremarkable. No acute fracture. Soft tissues: Unremarkable. IMPRESSION: 1. Suspect a vascular injury involving the cavernous portion of the right distal internal carotid artery with a small irregular flap and questionable posterior pseudoaneurysm. 2. 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 3. Definitely be prison
--- NOTE | 2024-02-05 14:01 | ECG_ITS ---
APPROVED REPORT Exam: Resting ECG HR:68 bpm ECG Measurements Heart Rate 68 AXES VA 175 P -1 QRSd 93 QRS 33 QT 394 T -11 QTc 412 Conclusion SINUS RHYTHM NONSPECIFIC ST & T-WAVE ABNORMALITY BORDERLINE ECG UNCONFIRMED REPORT Electronically signed by : LYNN GARRETT, 02/06/2024 06:47:58
[2024-02-05] MEDS: ACETAMINOPHEN 1,000MG/100ML VIAL 1000 MG IV (14:09)
[2024-02-05] MEDS: TET/DIPHTH/PERT-ADULT 0.5ML SYRINGE 0.5 ML IM (14:09)
--- NOTE | 2024-02-05 14:10 | XR_ITS ---
PROCEDURE INFORMATION: Exam: XR Right Hand Exam date and time: 02/05/2024 3:51 PM Age: 73 years old Clinical indication: Injury or trauma; Fall; Blunt trauma (contusions or hematomas); Hand; Right; Additional info: Fall, pain TECHNIQUE: Imaging protocol: Radiologic exam of the right hand. Views: 3 or more views. Total images: 3 COMPARISON: No relevant prior studies available. FINDINGS: Bones/joints: Degenerative changes of the interphalangeal and 1st carpometacarpal joints. Bones are osteopenic. No evidence of acute fracture or dislocation. Soft tissues: Soft tissues are within normal limits. IMPRESSION: 1. Degenerative changes of the interphalangeal and 1st carpometacarpal joints. 2. Bones are osteopenic. 3. No evidence of acute fracture or dislocation.
[2024-02-05 14:11] VITALS: BP 166/72; PULSE 76; RESP 16; TEMP 36.6; O2SAT 100; BMI 25.6
[2024-02-05 14:20] LABS: Basophils # 0.1 K/mm3 (0-0.2); Eosinophils # 0.2 K/mm3 (0.0-0.4); Eosinophils % 3.2 % (0.1-12.0); Hematocrit 35.5 % (37.0-47.0); Hemoglobin 12.3 g/dL (12.2-16.2); Lymphocytes # 2.3 K/mm3 (0.7-4.5); Mean Corpuscular HGB Conc 34.6 g/dL (31.8-35.4); Mean Corpuscular Hemoglobin 31.6 pg (27.0-31.2); Mean Corpuscular Volume 91.3 fl (81-99); Mean Platelet Volume 7.5 fl (7.4-10.4); Monocytes # 0.5 K/mm3 (0.1-1.0); Monocytes % 7.6 % (1.7-9.3); Neutrophils # 3.8 K/mm3 (1.8-7.8); Neutrophils % 55.2 % (37.0-80.0); Platelet Count 303 K/mm3 (142-424); Red Blood Count 3.89 M/mm3 (4.20-5.40); Red Cell Distribution Width 13.1 % (11.5-17.5)
--- NOTE | 2024-02-05 14:22 | PC.NURSE ---
I called Shanika, the pts sister, at her request. Shanika talked to Jackie who asked her to call their brother Delvin.
[2024-02-05 14:31] VITALS: BP 129/59; PULSE 75; RESP 18; O2SAT 100
--- NOTE | 2024-02-05 14:38 | ED_ITS ---
Discharge Plan Disposition Patient Disposition: Xfer Short-Term Hosp Condition: Good Prescriptions Prescriptions: No Action fosfomycin tromethamine 3 gram packet 1 packet PO WEEKLY 90 Days Qty: 12 1RF calcium carbonate 500 mg calcium (1,250 mg) tablet,chewable 500 mg PO DAILY Qty: 90 1RF montelukast 10 mg tablet 10 mg PO DAILY Qty: 90 1RF fluticasone propionate 50 mcg/actuation spray,suspension 1 spray INTRANASAL DAILY Qty: 16 5RF estradiol 0.5 mg tablet 0.5 mg PO DAILY Qty: 90 1RF Jardiance 25 mg tablet 25 mg PO DAILY Qty: 90 1RF fenofibrate 160 mg tablet 160 mg PO DAILY Qty: 90 1RF rosuvastatin 20 mg tablet 20 mg PO DAILY Qty: 90 1RF amitriptyline 50 mg tablet 50 mg PO DAILY Qty: 90 1RF cefuroxime axetil 500 mg tablet 500 mg PO BID Qty: 14 0RF (DME) Accu-Chek Neris Plus test strp Strip See Rx Instructions .ROUTE .MEDSUPPLY Qty: 100 1RF Rx Instructions: As directed lisinopril 20 mg tablet 20 mg PO BID Qty: 90 3RF venlafaxine 37.5 mg capsule,extended release 24hr See Rx Instructions .ROUTE .COMPLEX Qty: 90 0RF Dose Instruction: TAKE 1 CAPSULE EVERY DAY Rx Instructions: TAKE 1 CAPSULE EVERY DAY tramadol 50 mg tablet 50 mg PO Q6H PRN (Reason: Moderate Pain) Qty: 60 2RF spironolactone 25 mg tablet See Rx Instructions .ROUTE .COMPLEX Qty: 90 1RF Dose Instruction: Take 1 Tablet by mouth once daily. Rx Instructions: Take 1 Tablet by mouth once daily. famotidine 20 mg tablet See Rx Instructions .ROUTE .COMPLEX Qty: 60 2RF Dose Instruction: Take 1 Tablet by mouth twice daily. Rx Instructions: Take 1 Tablet by mouth twice daily. ziprasidone HCl 20 mg capsule See Rx Instructions .ROUTE .COMPLEX Qty: 60 0RF Dose Instruction: Take 1 Capsule by mouth twice a day Rx Instructions: Take 1 Capsule by mouth twice a day hydroxyzine HCl 25 mg tablet 25 mg PO TID Qty: 90 10RF Referrals Follow up/Referrals: Ji Hameed MD [Primary Care Provider] - See instructions Clinical Impressions Clinical Impression: Fall down steps, SAH (subarachnoid hemorrhage), Intraparenchymal hemorrhage of brain, Subdural hemorrhage, Occipital fracture, Scalp laceration Print Language Print Language: Syriac Discharge ED Provider: Mindy Cunningham General Adult HPI General Chief complaint: Fall Stated complaint: Fall Time Seen by Provider: 02/05/24 13:54 Mode of Arrival: EMS Source of Information: Patient and EMS Limitations: No Limitations Description of Symptoms (Recalled from ER Triage Doc. by RN): EMS reports they were dispatched due to the pt falling. On their arrival pt was found face down with her head resting on a concrete step. pt was A&O x4 with a GCS of 15 for EMS and is the same on arrival here. pt states she has been dizzy lately. pt states she does not remember falling, unknown if there was LOC. pt fell down 4 concrete steps outside. pt c/o cervical tenderness, posterior head pain, and thoracic tenderness. pt states her pain is 8/10. pt presents with a lac to her posterior head and an abrasion to her R hand. pt states she does not use a blood thinner just ASA. pt arrived on 4LNC, she is not on oxygen at baseline. pt was 100% on RA and taken off the oxygen. pt received 4mg IV zofran in route. pt BSFS on arrival was 134. pt was in CCOLLAR on on a back board at arrival. back board removed on assessment per Dr. Cunningham. History of Present Illness HPI narrative: This patient is a 73-year-old female with a history of hypothyroidism, hypertension, hyperlipidemia, anxiety, diabetes presenting to the emergency department for evaluation after a fall down 4 steps. Patient does not remember what happened. EMS was called to the scene because the patient fell and they found her face down with her head resting on a concrete step. She reportedly fell down approximately 4 steps. She was alert and oriented x 4 with a GCS of 15 and was found to have a laceration on the posterior scalp, neck pain, low back pain, abrasion to the right hand. No other concerns noted. She does take aspirin but no blood thinners. Patient currently complains of headache and upset stomach but denies any other concerns or complaints. Related Data Previous Rx's ?Medication ?Instructions ?Recorded calcium carbonate 500 mg PO DAILY Supplement #90 tabs 01/30/23 montelukast 10 mg tablet 10 mg PO DAILY #90 tabs 02/15/23 fluticasone propionate 50 1 spray intranasal DAILY #16 grams 03/01/23 mcg/actuation nasal spray,suspension empagliflozin 25 mg tablet 25 mg PO DAILY #90 tabs 03/15/23 (Jardiance) estradiol 0.5 mg tablet 0.5 mg PO DAILY hormones #90 tabs 03/15/23 fenofibrate 160 mg tablet 160 mg PO DAILY #90 tabs 08/31/23 rosuvastatin 20 mg tablet 20 mg PO DAILY #90 tabs 08/31/23 amitriptyline 50 mg tablet 50 mg PO DAILY #90 tabs 09/01/23 cefuroxime axetil 500 mg tablet 500 mg PO BID #14 tabs 10/10/23 blood sugar diagnostic (Accu-Chek #100 ea 10/20/23 Neris Plus test strips) fosfomycin tromethamine 3 gram 1 packet PO WEEKLY 90 days #12 ea 11/01/23 oral packet lisinopril 20 mg tablet 20 mg PO BID #90 tabs 11/10/23 venlafaxine 37.5 mg See Rx Instructions .Route 11/22/23 capsule,extended release 24 hr .COMPLEX #90 caps tramadol 50 mg tablet 50 mg PO Q6H PRN Moderate Pain #60 12/11/23 tabs spironolactone 25 mg tablet See Rx Instructions .Route 01/08/24 .COMPLEX #90 tabs famotidine 20 mg tablet See Rx Instructions .Route 01/23/24 .COMPLEX #60 tabs ziprasidone HCl 20 mg capsule See Rx Instructions .Route 01/23/24 .COMPLEX #60 caps hydroxyzine HCl 25 mg tablet 25 mg PO TID #90 tabs 02/02/24 Allergies Allergy/AdvReac Type Severity Reaction Status Date / Time ciprofloxacin (From Cipro) Allergy Mild rash Verified 11/01/23 13:49 Penicillins Allergy Mild rash Verified 11/01/23 13:49 cephalexin Allergy Unknown Verified 11/01/23 13:49 levofloxacin Allergy Unknown Verified 11/01/23 13:49 metformin Allergy Unknown Verified 11/01/23 13:49 methylprednisolone (From Allergy Unknown Verified 11/01/23 13:49 Medrol) sulfa Allergy Mild rash Uncoded 11/01/23 13:49 [facility] Disclaimer: The information contained in this section may have been updated after the patient was seen, as this information can be updated by other users. Medical History Acute maxillary sinusitis Vertigo Low TSH level Inflamed acrochordon Recurrent UTI Post menopausal syndrome Primary insomnia Cervicalgia Migraine Anxiety with depression Osteoarthritis IBS (irritable bowel syndrome) Chronic gastroesophageal reflux disease Allergic rhinitis PVD (peripheral vascular disease) PAD (peripheral artery disease) Hyperlipidemia Type 2 diabetes mellitus without complication Primary hypertension Surgical History H/O shoulder surgery History of bilateral breast reduction surgery History of cataract surgery (~2019) History of colonoscopy (~2019) History of carpal tunnel release of both wrists H/O bladder repair surgery Status post total knee replacement, left Status post total knee replacement, right Hx of cholecystectomy History of hysterectomy Family History Other Cancer Diabetes Hyperlipidemia Hypertension Social History Smoking Status: Never smoker alcohol intake: current alcohol intake frequency: holidays/special occasions only substance use type: denies use current occupational status: retired Travel in the last 8 weeks: None household members: none housing: house caffeine: Yes Other Medical History Have you received the Pneumonia Vaccine: Yes ROS Obtained: Yes All systems reviewed & no additional complaints except as documented Physical Exam General General appearance: alert and in no apparent distress Head Head exam: normocephalic and other (Laceration posterior scalp) Eye Eye exam: Present normal appearance, PERRL and EOMI ENT ENT exam: Present normal exam, normal oropharynx, mucous membranes moist and normal external ear exam Neck Neck exam: Present trachea midline and other (C-collar in place) Chest Chest inspection: Present normal inspection and symmetric chest wall rise; Absent tenderness Respiratory Respiratory exam: Present normal lung sounds bilaterally; Absent respiratory distress, wheezes, stridor or accessory muscle use Cardiovascular Cardiovascular exam: Present regular rate and normal rhythm Abdominal Exam Abdominal exam: Present soft; Absent distention, tenderness or guarding Extremities Exam Extremities exam: Present full ROM, normal capillary refill and other (Superficial abrasion to the back of the right hand without significant bony tenderness); Absent tenderness or edema Back Exam Back exam: Present tenderness (Thoracolumbar spine) Neurological Exam Neurological exam: Present alert, oriented X3 and CN II-XII intact; Absent motor sensory deficit Psychiatric Psychiatric exam: Present normal affect and normal mood Skin Skin exam: Present warm and dry Medical Decision Making Medical Records Medical records reviewed: Yes I reviewed the patient's medical records. Screening: Per USPSTF and CDC recommendations, given the prevalence of disease in our region, it is our hospital?s policy to screen for HIV and viral Hepatitis for all patients aged 18 and over and those with ongoing risk factors. [place] Inquiry Pt receiving controlled substance: No Vital Signs: 02/05/24 14:11 02/05/24 14:31 Temperature 97.8 F Temperature Source Oral Pulse Rate 75 Pulse Rate [Left] 76 Respiratory Rate 16 18 Blood Pressure 129/59 L Blood Pressure [Right Arm] 166/72 H Blood Pressure Mean 85 Blood Pressure Mean [Right Arm] 103 Blood Pressure Source [Right Arm] Automatic Cuff Blood Pressure Position [Right Arm] Sitting 02 Sat by Pulse Oximetry 100 100 Oxygen Delivery Method Room Air Lab Data Lab results reviewed: Yes I reviewed the patient's lab results. Lab Results 02/05/24 14:11: WBC 7.0, RBC 3.89 L, Hgb 12.3, Hct 35.5 L, MCV 91.3, MCH 31.6 H, MCHC 34.6, RDW 13.1, Plt Count 303, MPV 7.5, Neut % (Auto) 55.2, Lymph % (Auto) 33.0, [place] % (Auto) 7.6, Eos % (Auto) 3.2, Baso % (Auto) 1.0, Neut # (Auto) 3.8, Lymph # (Auto) 2.3, [place] # (Auto) 0.5, Eos # (Auto) 0.2, Baso # (Auto) 0.1, PT 11.1, INR 0.99, APTT 22.8, Sodium 137, Potassium 4.2, Chloride 106, Carbon Dioxide 17 L, Anion Gap 18.2 H, BUN 24 H, Creatinine 1.40 H, Estimated Creat Clear 35, Estimated GFR 37 L, Est GFR ( Amer) 44 L, Glucose 108 H, Calcium 9.6, Total Bilirubin 0.8, AST 39 H, ALT 19, Alkaline Phosphatase 63, Troponin I < 0.01, Total Protein 6.5, Albumin 4.3, Globulin 2.2, A lbumin/Globulin Ratio 2.0 H, HIV 1&2 Antibody Rapid Nonreactive 02/05/24 14:11 02/05/24 14:11 Orders (Tests/Meds): ED MEDICATIONS Generic Name Dose Route Start Last Admin Trade Name Amanda PRN Reason Stop Dose Admin Sodium Chloride 10 ml 02/05/24 13:58 Sodium Chloride 0.9% 10ml Flush Syringe IV 03/06/24 13:57 NEEDED PRN Maintain IV Site Discontinued Medications Generic Name Dose Route Start Last Admin Trade Name Amanda PRN Reason Stop Dose Admin Acetaminophen 1,000 mg 02/05/24 13:59 02/05/24 14:09 Acetaminophen 1,000mg/100ml Vial IV 02/05/24 14:00 1,000 mg ONCE ONE Administration Iopamidol 160 ml 02/05/24 15:37 02/05/24 15:38 Iopamidol-370 (76%);100ml Bottle IV 02/05/24 15:38 160 ml ONCE ONE Administration Ondansetron HCl 4 mg 02/05/24 14:41 02/05/24 14:47 Ondansetron 4mg/2ml Vial IV 02/05/24 14:42 4 mg ONCE ONE Administration Sodium Chloride 10 ml 02/05/24 15:37 02/05/24 15:38 Sodium Chloride 0.9% 10ml Syr (Rad Only) IV 02/05/24 15:38 10 ml ONCE ONE Administration Sodium Chloride 100 ml 02/05/24 15:37 02/05/24 15:38 0.9 % Sodium Chloride 50 Ml Vial IV 02/05/24 15:38 100 ml ONCE ONE Administration Tetanus/Reduced Diphtheria/Acell Pertussis 0.5 ml 02/05/24 13:59 02/05/24 14:09 Tet/Diphth/Pert-Adult 0.5ml Syringe IM 02/05/24 14:00 0.5 ml .ONCE ONE Administration ORDERS Category Date Time Status CT angio abdomen pelvis Stat Cat Scan 02/05/24 13:[address] angio chest - dissection Stat Cat Scan 02/05/24 13:[address] angio head Stat Cat Scan 02/05/24 13:[address] angio neck Stat Cat Scan 02/05/24 13:[address] bony pelvis Stat Cat Scan 02/05/24 13:[address] cervical spine wo con Stat Cat Scan 02/05/24 13:[address] head/brain wo con Stat Cat Scan 02/05/24 13:[address] lumbar spine wo con Stat Cat Scan 02/05/24 13:[address] thoracic spine wo con Stat Cat Scan 02/05/24 13:58 Completed Hand XR right minimum 3 views [XR hand RT min 3V] Stat Exams 02/05/24 14:10 Ordered XR chest portable Stat Exams 02/05/24 13:58 Taken XR pelvis 1-2V Stat Exams 02/05/24 13:58 Taken Activated Partial Thrombo Time Stat Lab 02/05/24 14:11 Completed Complete Blood Count Auto Diff Stat Lab 02/05/24 14:11 Completed Comprehensive Metabolic Panel Stat Lab 02/05/24 14:11 Completed HIV (1&2) Antibody Rapid Stat Lab 02/05/24 14:11 Completed Hep C Ab with Reflex to RNA Stat Lab 02/05/24 14:11 Received Lactic Acid Stat Lab 02/05/24 13:58 Ordered Prothrombin Time INR Stat Lab 02/05/24 14:11 Completed Troponin I Q3H Lab 02/05/24 17:00 Ordered Troponin I Q3H Lab 02/05/24 20:00 Ordered Troponin I Stat Lab 02/05/24 14:11 Completed Urinalysis and Microscopic Stat Lab 02/05/24 13:58 Ordered ECG Data Tracing #1: I reviewed this ECG and interpreted as documented below: Normal sinus rhythm with a ventricular to [address] changes concerning for ischemia. Normal intervals noted. ECG initial impression date: 02/05/24 ECG initial impression time: 14:02 Medical Decision Narrative: In summary, this patient is a 73-year-old female presenting to the Emergency Department for evaluation of fall down 4 steps with head injury, neck and back pain, abrasion to the right hand. Differential diagnoses considered include but are not limited to intracranial hemorrhage, skull fracture, spine fracture, polytrauma. Ruling out the most morbid conditions drove assessment. It should be noted patient's history includes peripheral vascular disease, hypertension, hyperlipidemia which may or may not be at goal therapy. This complicates all aspects of care by increasing patient's risk for morbidity. I reviewed patient's past medical records and noted PCP evaluation in October for dizzy spells. On exam, the patient is lying in bed in no acute distress. She is alert and neurologically intact. She has posterior scalp laceration, neck pain, back pain, abrasion to the right hand. Workup included, CT scans, trauma labs, x- rays of the chest, pelvis, and right hand. She was given Tdap booster given scalp laceration. She was given IV acetaminophen and Zofran for symptomatic improvement. EKG was obtained and is reassuring. CBC obtained is reassuring. Kidney function is around the patient's baseline. I interpreted CT scan of the head without contrast prior to radiology read and noted concerns for intracranial hemorrhage. I had an interactive discussion with the radiologist who advised the patient has intraparenchymal hemorrhage, subdural hemorrhage, subarachnoid hemorrhage. He also noted concerns for occipital bone fracture, which I have concern could be open given her scalp laceration. She reported to me that she was on aspirin but she now notes she has not taken it since Monday, as she has been taking Tylenol instead. She does not take any other blood thinner. The remainder of her trauma scan reads are pending, however I then initiated emergent transfer to for higher level of care given her multiple brain bleeds with midline shift and possible open occipital bone fracture. I called and had an interactive discussion with Dr. Matthews and Dr. Wheatley in the transfer center and with neurosurgery who advised they would accept the patient to [facility] ED for further evaluation. Due to the emergent nature of getting the patient transferred, we did arrange for flight. Patient updated to plan of care. Family at bedside and notified as well. Patient was transferred in stable condition. Critical Care Critical Care Time Critical Care Time: No
[2024-02-05] MEDS: ONDANSETRON 4MG/2ML VIAL 4 MG IV (14:47)
[2024-02-05 14:49] LABS: Alanine Aminotransferase 19 U/L (12-78); Albumin Level 4.3 g/dl (3.5-5.0); Alkaline Phosphatase 63 U/L (38-126); Anion Gap 18.2 mEq/L (5-15); Aspartate Amino Transferase 39 U/L (14-36); Bilirubin,Total 0.8 mg/dl (0.2-1.3); Blood Urea Nitrogen 24 mg/dl (7-17); Calcium 9.6 mg/dl (8.4-10.2); Carbon Dioxide 17 mmol/L (22.0-30.0); Chloride 106 mmol/L (98-107); Creatinine Clearance Estimated 35 mL/min (50-200); Estimated Glomerular Filt Rate 37 ml/min (>60); GFR (African American) 44 ML/MIN (>60); Globulin 2.2 g/dL (1.3-3.2); Glucose 108 mg/dl (74-100); Potassium 4.2 mmoL/L (3.5-5.1); Sodium 137 mmol/L (136-145); Total Protein,Serum 6.5 g/dl (6.3-8.2)
[2024-02-05 14:54] LABS: INR 0.99 (0.9-1.1); Prothrombin Time 11.1 seconds (10.1-12.5)
[2024-02-05 14:57] LABS: Activated Partial Thrombo Time 22.8 seconds (22.8-30.6)
[2024-02-05 15:00] VITALS: BP 151/68; PULSE 74; RESP 18; O2SAT 100
[2024-02-05 15:06] LABS: Troponin I < 0.01 ng/ml (0.00-0.034)
[2024-02-05] MEDS: SODIUM CHLORIDE 0.9% 10ML SYR (RAD ONLY) 10 ML IV (15:38)
[2024-02-05] MEDS: IOPAMIDOL-370 (76%);100ML BOTTLE 160 ML IV (15:38)
[2024-02-05] MEDS: 0.9 % SODIUM CHLORIDE 50 ML VIAL 100 ML IV (15:38)
[2024-02-05 15:42] LABS: HIV (1&2) Antibody Rapid NONREACTIVE (NONREACTIVE)
--- NOTE | 2024-02-05 15:55 | PC.NURSE ---
[facility] called and accepted standby or flight. ETA 22 minutes.
--- NOTE | 2024-02-05 15:55 | PC.NURSE ---
called [facility] to speak with them about this pt being transferred. Dr Cunningham is speaking with [facility] now
[2024-02-05 16:15] VITALS: BP 125/81; PULSE 87; RESP 16; O2SAT 100
--- NOTE | 2024-02-05 16:19 | PC.NURSE ---
Report called to Shakila KIRKPATRICK at [facility]
[2024-02-05 16:20] VITALS: BP 125/81; PULSE 86; RESP 16; TEMP 36.6; O2SAT 100
[2024-02-06 08:21] LABS: HCV Ab Non Reactive (Non Reactive)
== END 2024-02-05 16:50 | disposition short-term general hospital (02) ==
PROVIDERS: Emergency Provider Emergency Medicine; PCP Family Medicine
DX: S01.01XA Laceration without foreign body of scalp, initial encounter (principal); S02.119A Unspecified fracture of occiput, initial encounter for closed fracture; I62.00 Nontraumatic subdural hemorrhage, unspecified; I61.9 Nontraumatic intracerebral hemorrhage, unspecified; I60.9 Nontraumatic subarachnoid hemorrhage, unspecified; R42 Dizziness and giddiness; M54.2 Cervicalgia; M54.50 Low back pain, unspecified; R51.9 Headache, unspecified; R19.8 Other specified symptoms and signs involving the digestive system and abdomen; S60.511A Abrasion of right hand, initial encounter; Z23 Encounter for immunization; W10.8XXA Fall (on) (from) other stairs and steps, initial encounter; Y93.89 Activity, other specified; Y92.9 Unspecified place or not applicable
CPT/HCPCS: 70450; 70496; 70498; 71045; 71275; 72125; 72128; 72131; 72170; 72192; 73130; 74174; 80053; 84484; 85025; 85610; 85730; 86803; 87389; 90471; 90715; 93005; 96374; 96375; 99285; J0131; J2405; Q9967

== ENCOUNTER 2024-03-01 11:51 | Outpatient (CLI) | payer MEDICARE, SELFPAY | END 2024-03-01 23:59 | disposition home or self-care (01) | LOC: LAB.DROPOF 03-02 09:25 | PROVIDERS: PCP Family Medicine; Visit Provider Family Medicine | DX: N39.0 Urinary tract infection, site not specified (principal) | CPT/HCPCS: 87086 ==

== ENCOUNTER 2024-10-30 11:20 | Outpatient (CLI) | payer MEDICARE, SELFPAY ==
[2024-10-30 20:25] LABS: Alanine Aminotransferase 21 U/L (12-78); Albumin Level 4.5 g/dl (3.5-5.0); Albumin/Globulin Ratio 2.3 (1.1-1.8); Alkaline Phosphatase 59 U/L (38-126); Anion Gap 13.8 mEq/L (5-15); Aspartate Amino Transferase 37 U/L (14-36); Bilirubin,Total 0.4 mg/dl (0.2-1.3); Blood Urea Nitrogen 30 mg/dl (7-17); Calcium 10.0 mg/dl (8.4-10.2); Carbon Dioxide 24 mmol/L (22.0-30.0); Chloride 104 mmol/L (98-107); Creatinine,Serum 1.80 mg/dl (0.52-1.04); Estimated Glomerular Filt Rate 27 ml/min (>60); GFR (African American) 33 ML/MIN (>60); Globulin 2.0 g/dL (1.3-3.2); Glucose 118 mg/dl (74-100); Potassium 4.8 mmoL/L (3.5-5.1); Sodium 137 mmol/L (136-145); Total Protein,Serum 6.5 g/dl (6.3-8.2)
--- OUTSIDE RECORDS SUMMARY | 2024-11-01 11:22 | XMS_ITS | Clinical Summary ---
Author Organization [facility] Address [address] [place] [id number] Care Team Providers Care Information Support Project Manager Name Role Phone Sathish Lawton MD Primary Care Provider [phone] Chun Rubalcava MD Unavailable [phone] Allergies Active Allergy Reactions Criticality Noted Date Comments Amoxicillin Hives 07/04/2013 Aspirin 07/04/2013 Stomach upset Cotrim 01/29/2014 Sulfamethoxazole-Trimethop rim 01/29/2014 Ciprofloxacin Hives 07/04/2013 Cephalexin Hives 07/04/2013 Morphine Nausea And Vomiting 07/04/2013 Penicillins Hives 07/04/2013 Sulfa (Sulfonamide Antibiotics) Hives 07/04/2013 Azithromycin Hives 07/04/2013 Medications Meclizine 25 mg PO Cap Take by mouth every morning. Active fluticasone (FLONASE) 50 mcg/actuation NA nasal spray 2 Sprays by EACH NOSTRIL route daily. Active omeprazole (PRILOSEC) 20 mg PO capsule Take 20 mg by mouth daily. Active LORazepam (ATIVAN) 0.5 mg PO tablet Take 0.5 mg by mouth 3 times daily as needed. Active cloNIDine (CATAPRESS) 0.2 mg PO tablet Take 0.2 mg by mouth 2 times daily. Active venlafaxine (EFFEXOR-XR) 150 mg PO Cp24 Take 150 mg by mouth nightly bedtime. Active rizatriptan (MAXALT) 10 mg PO Tab Take 10 mg by mouth once as needed. May repeat in 2 hours in needed Active simvastatin (ZOCOR) 40 mg PO tablet Take 40 mg by mouth nightly at bedtime. Active promethazine (PHENERGAN) 25 mg PO tablet Take 25 mg by mouth every 6 hours as needed. Active multivitamin (CENTRUM) 0.4-162-18 mg PO Tab Take 1 Tab by mouth daily (with breakfast). Active CALCIUM CITRATE/VITAMIN D3 (CALCIUM CITRATE + D PO) Take 1 Tab by mouth daily. Active Magnesium Oxide 500 mg PO Tab Take by mouth daily. Active Potassium Gluconate 595 (99) mg PO Tab Take by mouth daily. Active ascorbic acid (VITAMIN C) 500 mg PO tablet Take 500 mg by mouth daily. Active cholecalciferol (VITAMIN D-3) 400 unit PO Tab Take 400 Units by mouth daily. Active Chromium Picolinate 500 mcg PO Cap Take by mouth daily. Active traZODone (DESYREL) 50 mg tablet Take 25 mg by mouth nightly at bedtime. Active Levocetirizine (XYZAL) 5 mg Tablet Take by mouth every 48 hours. Active guaiFENesin (MUCINEX) 600 mg Tablet Sustained Release Take 600 mg by mouth every 48 hours. Opposite day of xyzal Active estradiol (ESTRACE) 0.5 mg tablet Take 1 Tab by mouth daily. Hold for 6 weeks post op 30 Tab 0 01/18/20 14 Active mupirocin (MUPIROCIN CALCIUM) 2 % ointment Apply to nares BID through 01/20/14 pm dose 22 g 0 01/18/20 14 Active clarithromycin (BIAXIN) 500 mg tablet DIRECTED Active cloNIDine HCl (CATAPRESS) 0.1 mg tablet DIRECTED Active estradiol (ESTRACE) 0.5 mg tablet DIRECTED Acti ve DOCOSAHEXANOIC ACID/EPA (FISH OIL PO) Active saccharomyces boulardii (FLORASTOR) 250 mg Capsule Take one capsule twice a day for 5 days. Active fluticasone (FLONASE) 50 mcg/actuation nasal spray DIRECTED Active FLU VACC TS 2012-,36MOS+,/PF (FLUZONE , PF, IM) TO BE ADMINISTERED YB PHARMACIST FOR IMMUNIZATION Active gabapentin (NEURONTIN) 100 mg capsule DIRECTED Active gabapentin (NEURONTIN) 400 mg capsule DIRECTED Active Hydrocodone-Acetami nophen (VICODIN) 5-300 mg Tablet DIRECTED Ac tive IBUPROFEN PO DIRECTED Activ e Levocetirizine (XYZAL) 5 mg Tablet DIRECTED Active lisinopril-hydrochl orothiazide (PRINZIDE, ZESTORETIC) 10-12.5 mg per tablet DIRECTED Acti ve MECLIZINE Active methocarbamol (ROBAXIN) 500 mg tablet DIRECTED Active methylPREDNISolone (MEDROL) 4 mg tablet DIRECTED Active nystatin (MYCOSTATIN) 100,000 unit/gram ointment DIRECTED Active omeprazole (PRILOSEC) 20 mg capsule DIRECTED Active oxyCODONE-acetamino phen (PERCOCET) 5-325 mg per tablet DIRECTED Active sumatriptan (IMITREX) 50 mg Tablet DIRECTED Active traZODone (DESYREL) 100 mg tablet DIRECTED Acti ve ACETAMINOPHEN (TYLENOL PO) Active valACYclovir (VALTREX) 500 mg tablet DIRECTED Active vilazodone (VIIBRYD) 40 mg Tablet DIRECTED Active Diclofenac Sodium (VOLTAREN) 1 % Gel DIRECTED Active LEVOCETIRIZINE DIHYDROCHLORIDE (XYZAL PO) DIRECTED Active oxyCODONE-acetamino phen (PERCOCET) 5-325 mg per tablet Take 1-2 Tabs by mouth every 6 hours as needed for Pain. 80 Tab 0 01/31/20 14 Active Active Problems Problem Noted Date Diagnosed Date Primary localized osteoarthrosis, lower leg 12/19 Primary localized osteoarthrosis, lower leg 07/18 Hypertension Hyperlipidemia GERD (gastroesophageal reflux disease) Family History Medical History Relation Name Comments Heart Problems Brother pacemaker aic d Heart Problems Father Pacemaker Anesthesia Complications Neg Hx Relation Name Status Comments Brother Father Social History Tobacco Use Types Packs/Day Years Used Date Smoking Tobacco: Former Cigarettes Q uit: 07/26/1993 Smokeless Tobacco: Never Alcohol Use Standard Drinks/Week Comments No 0 (1 standard drink = 0.6 oz pur e alcohol) Comments Unknown Sex and Gender Information Value Date Recorded Sex Assigned at Not on file Legal Sex Female 3:18 PM EDT Gender Identity Not on file Sexual Orientation Not on file Last Filed Vital Signs Vital Sign Reading Time Taken Comments Blood Pressure 149/92 01/18/2014 7:45 AM EDT Pulse 100 01/18/2014 7:45 AM EDT Temperature 36.7 C (98 F) 01/18/2014 7:45 AM EDT Respiratory Rate 16 01/18/2014 7:45 AM EDT Oxygen Saturation 94% 01/18/2014 7:45 AM EDT Inhaled Oxygen Concentration - - Weight 78.9 kg (174 lb) 02/25/2014 2:38 PM EST Height 154.9 cm (5' 1 ) 02/25/2014 2:38 PM EST Body Mass Index 32.88 02/25/2014 2:38 PM EST Plan of Treatment Health Maintenance Due Date Last Done Comments Cologuard 1950 Colonoscopy 1949 Colorectal Cancer Screening 1949 FIT 1949 Lipid Screening 1967 Tetanus Vaccination (Every 10 Years) 1967 Hepatitis C Virus (HCV) Screening 1970 Pneumococcal Vaccine: 50+ Years (1 of 1 - PCV) 999 Zoster-RZV(Shingrix) (1 of 2) 1999 Fall Risk Assessment 2014 Osteoporosis Screening 2014 COVID-19 Vaccine ( - season) 2023 RSV Vaccines (1 - 1-dose 75+ series) 02/28/2024 Advance Care Planning 03/20/2024 Depression Screening 03/20/2024 Influenza Vaccination (#1) 2024 Medical Devices Implanted Type Area Infrastructure Solutions Architect Device Identifier Shelf Expiration Date Model / Serial / Lot Smartset Mv 40g - Eo Implanted:Qty: 2 on 07/31/2013 by Chun Rubalcava MD at [facility] Left: Knee * J \T\ J DEPUY 03/18/2015 [id number] / / [id number] Cmpnt Tib Tray Nonpor Sz 2.5 Implanted:Qty: 1 on 07/31/2013 by Chun Rubalcava MD at [facility] Left: Knee * J \T\ J DEPUY 04/18/2018 1294-33-125 / / [id number] Sigma Ps Jovan Fem Sz 2.5 Left Implanted:Qty: 1 on 07/31/2013 by Chun Rubalcava MD at [facility] Left: Knee * USE JJ DEPU 05/17/202340-250 / / [id number] Cmpnt Pat Oval 3 Post 35mm Implanted:Qty: 1 on 07/31/2013 by Chun Rubalcava MD at [facility] Left: Knee * J \T\ J DEPUY 04/18/2018 / / [id number] [facility] Tib Stblz Rot Sz 2.5 12.5 Implanted:Qty: 1 on 07/31/2013 by Chun Rubalcava MD at [facility] Left: Knee * J \T\ J DEPUY 03/18/2018 96 / / [id number] Knee Total Con Tier 2 Depuy Implanted:Qty: 1 on 07/31/2013 by Chun Rubalcava MD at [facility] Left: Knee * J \T\ J DEPUY KNEES TIER 2 / / TOTAL KNEE Smartset Mv 40g - Eo Implanted:Qty: 2 on 01/15/2014 by Chun Rubalcava MD at [facility] Right: Knee * J \T\ J DEPUY 07/18/2015 [id number] / / [id number] Cmpnt Pat Oval 3 Post 35mm Implanted:Qty: 1 on 01/15/2014 by Chun Rubalcava MD at [facility] Right: Knee * J \T\ J DEPUY 07/17/2018 / / [id number] [facility] Tib Stblz Rot Sz 2.5 10mm Implanted:Qty: 1 on 01/15/2014 by Chun Rubalcava MD at [facility] Right: Knee * J \T\ J DEPUY 09/16/2018 / / [id number] Sigma Femoral Posterior Stabilized Cemented Size 2.5 Right Implanted:Qty: 1 on 01/15/2014 by Chun Rubalcava MD at [facility] Right: Knee * J \T\ J DEPUY 11/17/202250-250 / / [id number] Cmpnt Tib Tray Nonpor Sz 2 Implanted:Qty: 1 on 01/15/2014 by Chun Rubalcava MD at [facility] Right: Knee * J \T\ J DEPUY 08/17/2018 1294-33-120 / / [id number] Knee Total Con Tier 1 Depuy Implanted:Qty: 1 on 01/15/2014 by Chun Rubalcava MD at [facility] Right: Knee * J \T\ J DEPUY KNEES TIER 1 / / TOTAL KNEE Advance Directives For more information, please contact: [phone] Documents on File Type Date Recorded 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 Advance Directives and Living Will 01/21/2014 3:41 PM ADVANCE DIRECTIVES Advance Directives and Living Will 08/06/2013 11:16 AM ADVANCE DIRECTIVES * Full Code (Latest Code Status on File) Date Activated Date Inactivated Comments 01/15/2014 5:27 PM 01/18/2014 4:35 PM * Full Code Date Activated Date Inactivated Comments 07/31/2013 2:19 PM 08/02/2013 7:39 PM * Full Code Date Activated Date Inactivated Comments 07/31/2013 10:13 AM 07/31/2013 2:19 PM Care Teams Information Support Project Manager Relationship Specialty Start Date End Date Sathish Lawton MD [address] [place] [address] PCP - General Family Medicine 07/04/13 Chun Rubalcava MD [address] [place] [address] Orthopedic Surgery 03/27/22
--- OUTSIDE RECORDS SUMMARY | 2024-11-01 11:22 | XMS_ITS ---
Author Organization Unknown TREATMENT PLAN [facility] Start Date Provider Encounter for Check-up [id number] [facility]
--- OUTSIDE RECORDS SUMMARY | 2024-11-01 11:23 | XMS_ITS | Clinical Summary ---
Author Organization Healthcare Address [address] [place] [address] Care Team Providers Care Alpine Patroller Name Role Phone Ji Hameed MD Primary Care Provider [phone] Allergies Active Allergy Reactions Criticality Noted Date Comments Azithromycin Hives Medium 06/03/2011 Cephalexin Hives Medium 07/17/2012 Ciprofloxacin Hives Medium 11/05/2011 Metformin Diarrhea Low 04/13/2022 Morphine Nausea And Vomiting Low 06/03/2011 Penicillins Hives Medium 06/03/2011 Sulfa Drugs Hives Medium 06/03/2011 Medications amitriptyline (Elavil) 50 MG tablet Take 1 tablet (50 mg) by mouth every night. Active empagliflozin (Jardiance) 25 MG Take 1 tablet (25 mg) by mouth 1 (one) time each day. Active estradiol (Estrace) 0.5 MG tablet Take 1 tablet (0.5 mg) by mouth 1 (one) time each day. Active famotidine (Pepcid) 20 MG tablet Take 1 tablet (20 mg) by mouth 2 (two) times a day. Active fenofibrate (Triglide) 160 MG tablet Take 1 tablet (160 mg) by mouth 1 (one) time each day. Active fluticasone (Flonase) 50 MCG/ACT nasal spray Administer 1 spray into each nostril 1 (one) time each day. Shake gently. Before first use, prime pump. After use, clean tip and replace cap. Active fosfomycin (Monurol) 3 g packet Take 3 g by mouth every 7 (seven) days. Active hydrOXYzine HCl (Atarax) 25 MG tablet Take 1 tablet (25 mg) by mouth 3 (three) times a day. Active lisinopril 20 MG tablet Take 1 tablet (20 mg) by mouth 2 (two) times a day. Active rosuvastatin (Crestor) 20 MG tablet Take 1 tablet (20 mg) by mouth every night. Active spironolactone (Aldactone) 25 MG tablet Take 1 tablet (25 mg) by mouth 1 (one) time each day. Active venlafaxine XR (Effexor-XR) 37.5 MG 24 hr capsule Take 1 capsule (37.5 mg) by mouth 1 (one) time each day. Do not crush or chew. Active ziprasidone (Geodon) 20 MG capsule Take 1 capsule (20 mg) by mouth 2 (two) times a day with meals. Active traMADol (Ultram) 50 MG tablet Take 1 tablet (50 mg) by mouth every 6 (six) hours if needed for moderate pain. Active Multiple Vitamin (multivitamin) tablet Take 1 tablet by mouth 1 (one) time each day. Active acetaminophen (Tylenol) 500 MG tablet Take 2 tablets (1,000 mg) by mouth every 6 (six) hours. 100 tablet 4 Active levETIRAcetam (Keppra) 250 MG tablet Take 2 tablets (500 mg) by mouth 2 (two) times a day for 11 doses. 22 tablet 4 Active Active Problems Problem Noted Date Diagnosed Date Fracture of occipital bone o f skull with loss of consciousness 02/06/2024 Overview (02/06/2024): - NSG: q2 neuro checks, Keppra BID x7 days, normonatremia goals, repeat CT head stable Occipital scalp laceration 02/06/2024 Overview (02/07/2024): - scalp laceration repaired with saumya, will need removal ~ 02/11 Hypertension 02/06/2024 Overview (02/06/2024): Restart home meds when appropriate and verified Anxiety 02/06/2024 Overview (02/06/2024): Home regimen restarted Type 2 diabetes mellitus 02/06/2024 Overview (02/06/2024): Glucose acceptable range, likely no SSI CC2 diet, patient on no insulin at home BLAIR (acute kidney injury) 02/06/2024 Overview (02/07/2024): Encourage fluids, recheck Mild hyperkalemia Resolved Hyperthyroidism 02/06/2024 Overview (02/06/2024): Restart home meds when appropriate and verified Fall (on) (from) other stairs and steps, initial encounter 02/06/2024 Overview (02/06/2024): Tertiary 02/05 Intracranial hemorrhage 02/05/2024 Overview (02/07/2024): SDH, IPH and SAH worse on the R with trace midline shift GCS 15 on arrival, amnestic to event - NSG: q2 neuro checks, Keppra BID x7 days, normonatremia goals, hold DVT ppx x 24 hours Has been stable, with some TBI symptoms Outpatient PMR follow up Social History Tobacco Use Types Packs/Day Years Used Date Smoking Tobacco: Never Smokeless Tobacco: Never Tobacco Cessation:Counseling Given: No Alcohol Use Standard Drinks/Week Comments Never 0 (1 standard drink = 0.6 oz pur e alcohol) Humiliation, Afraid, Rape, and Kick questionnair e Answer Date Recorded Within the last year, have y ou been afraid of your partner or ex-partner? No 02/06/2024 Within the last year, have y ou been humiliated or emotionally abused in other ways by your partner or ex-partner? No Within the last year, have y ou been kicked, hit, slapped, or otherwise physically hurt by your partner or ex-partner? No 02/06/2024 Within the last year, have y ou been raped or forced to have any kind of sexual activity by your partner or ex-partner? No 02/06/2024 Hunger Vital Sign Answer Date Recorded Within the past 12 months, y ou worried that your food would run out before you got the money to buy more. Never true 02/06/20 24 Within the past 12 months, t he food you bought just didn't last and you didn't have money to get more. Never true 02/06/2024 PRAPARE - Transportation Answer Date Re corded In the past 12 months, has l ack of transportation kept you from medical appointments or from getting medications? No 01/18 In the past 12 months, has l ack of transportation kept you from meetings, work, or from getting things needed for daily living? No 02/06/2024 Housing Stability Vital Sign Answer Edgard e Recorded In the last 12 months, was t here a time when you were not able to pay the mortgage or rent on time? No 02/06/2024 In the past 12 months, how m any times have you moved where you were living? 1 02/06/2024 At any time in the past 12 m [facility], were you homeless or living in a half-way (including now)? No 02/06/2024 CAGE ASSESSMENT Answer Date Recorded Cage unable to access Not on file 02/06/2024 Cage max number of drinks Not on file 2023 Cage Beverages a week Not on file 02/06/2024 Have you ever felt you should CUT down on your d rinking? 0 02/06/2024 Have you been ANNOYED by people criticizing your drinking? 0 02/06/2024 Have you felt GUILTY about your drinking? 0 02/06/2024 Have you had a drink first t [place] in the morning (EYE-APPRAISER OIL AND WATER) to steady your nerves or to get rid of a hangover? 0 02/06/2024 CAGE Questionnaire Score 0 024 Utilities Answer Date Recorded In the past 12 months has th e electric, gas, oil, or water company threatened to shut off services in your home? No 02/06/2024 Comments No Sex and Gender Information Value Date Recorded Sex Assigned at Not on file Legal Sex Female 3:53 PM EST Gender Identity Not on file Sexual Orientation Not on file Last Filed Vital Signs Vital Sign Reading Time Taken Comments Blood Pressure 111/57 02/07/2024 3:24 PM EST Pulse 83 02/07/2024 3:24 PM EST Temperature 37.1 C (98.7 F) 02/07/2024 3:24 PM EST Respiratory Rate 15 02/06/2024 3:30 PM EST Oxygen Saturation 98% 02/07/2024 3:24 PM EST Inhaled Oxygen Concentration - - Weight 62.4 kg (137 lb 9.1 oz) 02/05/2024 7:40 P M EST Height - - Body Mass Index - - Plan of Treatment Health Maintenance Due Date Last Done Comments [facility]-Bone Density Scan 1950 [facility]-Depression Screening 1949 [facility]-Diabetes: Hemoglobin A1C 1949 [facility]-Medicare Annual Wellness (AWV) 1950 [facility]-Infant/Child/Adol SDOH Screenings 1949 Diabetes: Dental Exam 1959 CT Colonography 1994 Colonoscopy 1994 FIT-DNA 1994 FIT 1994 FOBT 1994 Sigmoidoscopy 1994 [facility]-Colorectal Cancer Screening 1994 [facility]-Pneumococcal Vaccine: 50+ Years (2 of 2 - PCV) 11/17/2018 11/17/2017 [id number] Vaccine ( season) 2023 02/16/2023, 01/24/2022, 08/23/2021, Additional history exists [facility]-RSV Vaccine: 60+ Years or (1 - 1-dose 75+ series) 02/28/2024 [facility]- SDOH Screenings 08/05/2024 [facility]-Adult SDOH Screenings 08/05/2024 02/06/2024 [facility]-Influenza Vaccine (#1) 11/18/202402/16, 01/01/2022, 01/07/2021, Additional history exists [facility]-DTaP,Tdap,and Td Vaccines (3 - Td or Tdap) 02/04/2034 02/05/2024, 10/23/2020 [facility]-Breast Cancer Screening Discontinued 05/19, 06/12/2023, 06/01/2022, Additional history exists [facility]-Zoster Vaccines Completed 09/19/2023, 08/15/2023, 03/17/2014 [facility]-Hepatitis C Screening Completed 02/05/2024 HPV Vaccines Aged Out No longer eligi ble based on patient's age to complete this topic [facility]-HIB Vaccines Aged Out No longer e ligible based on patient's age to complete this topic [facility]-Hepatitis A Vaccines Aged Out No longer eligible based on patient's age to complete this topic [facility]-IPV Vaccines Aged Out No longer e ligible based on patient's age to complete this topic [facility]-Rotavirus Vaccines Aged Out No lo nger eligible based on patient's age to complete this topic Procedures Procedure Name Priority Date/Time Associated Diagnosis Comments HEPATITIS C ANTIBODY - ED W/REFLEX TO HCV QUANT PCR STAT 02/05/2024 7:16 PM EST from Last 3 Months or Most Recently Relevant to Health Maintenance Results * Hepatitis C Antibody - ED (02/05/2024 7:16 PM EST) Hepatitis C Antibody Negative Negative 02/05/2024 8:24 PM EST [facility] Blood Venous blood specimen / Unknown Venipuncture / Unknown 02/05/2024 7:16 PM EST 02/05/2024 7:41 PM EST us Chun Basilio MD LAB BLOOD ORDERABLES Final Re sult [facility] [address] [place] [address] from Last 3 Months or Most Recently Relevant to Health Maintenance Insurance MEDICARE Advance Directives * Full Code (Latest Code Status on File) Date Activated Date Inactivated Comments 02/05/2024 11:05 PM 02/07/2024 6:25 PM Question Answer Comments Patient has decision-making capacity? Yes Care Teams Alpine Patroller Relationship Specialty Start Date End Date Ji Hameed MD [address] [place] [address] PCP - General 02/05/24
--- OUTSIDE RECORDS SUMMARY | 2024-11-01 11:23 | XMS_ITS | Clinical Summary ---
Author Organization [facility] Address [address] [facility] [place] [address] Phone Care Team Providers Care Layout Designer Name Role Phone Sathish Lawton MD Primary Care Provider Unav ailable Allergies Active Allergy Reactions Criticality Noted Date Comments Sulfatrim Ds Hives 11/05/2011 Ciprofloxacin Hives 11/05/2011 Cephalexin Hives 07/17/2012 Metformin Diarrhea 04/13/2022 Morphine Nausea And Vomiting 06/03/2011 Penicillins Hives 06/03/2011 Sulfa (Sulfonamide Antibiotics) Hives 05/18 Azithromycin Hives 06/03/2011 Medications * This document contains information received from the source organization and may not represent a complete record from that organization. meclizine (ANTIVERT) 25 mg tablet Take 1 Tab by mouth as needed for Dizziness. 15 Tab 0 2 Active Omeprazole 20 mg TbEC Take by mouth. Activ e MULTIVITAMIN WITH MINERALS (MULTIVITAMIN AND MINERALS ORAL) Take by mouth. Activ e fluticasone (FLONASE) 50 mcg/actuation nasal spray by Nasal route daily. Active lactobacillus rhamnosus, GG, (CULTURELLE) 10 billion cell capsule Take 1 Capsule by mouth as needed. Active fish oil-omega-3 fatty acids 340-1,000 mg capsule Take 2 g by mouth daily. Active Calcium Carbonate-Vitami n D2 1,200-400 mg-unit Cap Take by mouth. Act mima venlafaxine (EFFEXOR-XR) 37.5 mg Oral Capsule, Sust. Release 24 hr Take 37.5 mg by mouth daily. Active Magnesium Oxide 500 mg Oral Tablet Take 500 mg by mouth daily. Active Potassium 99 mg Oral Tablet Take 1 Tablet by mouth 2 times daily. Active estradiol (ESTRACE) 0.5 mg Oral Tablet TAKE 1 TAB BY MOUTH DAILY. 30 Tab 0 5 Active Valerian Root 500 mg Oral Capsule Take 500 mg by mouth nightly. Active famotidine (PEPCID) 20 mg Oral Tablet Take 20 mg by mouth daily. Active cranberry fruit extract (CRANBERRY CONCENTRATE ORAL) Take 4,200 mg by mouth daily. Active fenofibrate (LOFIBRA) 160 mg Oral Tablet Take 160 mg by mouth daily. Active ziprasidone (GEODON) 20 mg Oral Capsule Take 20 mg by mouth 2 times daily. Active amitriptyline (ELAVIL) 50 mg Oral Tablet Take 50 mg by mouth nightly. Active hydrOXYzine (ATARAX) 25 mg Oral Tablet Take 25 mg by mouth every 4 hours as needed for Itching. Active ascorbic acid/collagen hydr (COLLAGEN PLUS VITAMIN C ORAL) Take 1 Capsule by mouth daily. Active spironolactone (ALDACTONE) 25 mg Oral Tablet Take 25 mg by mouth daily. Active rosuvastatin (CRESTOR) 20 mg Oral Tablet Take 20 mg by mouth nightly. Active cyanocobalamin 1,000 mcg Oral Tablet Take 1,000 mcg by mouth daily. Active empagliflozin (JARDIANCE) 25 mg Oral Tablet Take 25 mg by mouth daily. Active Cholecalciferol, Vitamin D3, (VITAMIN D3) 125 mcg (5,000 unit) Oral Tablet Take 1 Tablet by mouth daily. Active HAIR, SKIN AND NAILS, BIOTIN, ORAL Take 5,000 mcg by mouth daily. Active oxyCODONE-acetam inophen (PERCOCET) 5-325 mg Oral Tablet Take 1-2 Tablets by mouth every 4 hours as needed for Acute Pain (R52). 36 Tablet 4 Active aspirin 325 mg Oral Tablet Take 1 Tablet by mouth daily (with breakfast). 30 Tablet 4 Active estradioL (ESTRACE) 0.01 % (0.1 mg/gram) Vagl CreamIndications :Vaginal atrophy Apply pea-sized amount using fingertip into the vagina (or as instructed) nightly x 2 weeks, then use 2-3 x per week. 42.5 g 1 Active traMADoL (ULTRAM) 50 mg Oral Tablet Take 50 mg by mouth as needed for Pain. Active Active Problems Problem Noted Date Diagnosed Date Allergic rhinitis 12/25/2023 Anxiety with depression 12/25/2023 Cervicalgia 12/25/2023 Formication 12/25/2023 Gastroesophageal reflux disease 12/25/2023 Hyperlipidemia 12/25/2023 IBS (irritable bowel syndrome) 12/25/2023 Migraine 12/25/2023 Osteoarthrosis 12/25/2023 PAD (peripheral artery disease) 12/25/2023 Post menopausal syndrome 12/25/2023 Primary hypertension 12/25/2023 Primary insomnia 12/25/2023 Type 2 diabetes mellitus without complication UTI (urinary tract infection) 12/25/2023 Hyperthyroidism 10/25/2023 Assessment & Plan (10/25/2023 4:21 PM EDT): discussed potential etiologies famhx of Graves Disease will check full thyroid panel including antibodies start methimazole 5mg daily, discussed risks and benefits Dizziness 10/25/2023 Assessment & Plan (10/25/2023 4:26 PM EDT): cont on B vitamins hopeful to see improvement with resolving hyperthyroidism Prediabetes 10/25/2023 Assessment & Plan (10/25/2023 4:20 PM EDT): managed per PCP doing well on jardiance clarified goal fasting BG 80-120 Osteoarthritis of left glenohumeral joint 2022 Urethral cyst 07/05/2022 Primary localized osteoarthrosis, lower leg 07/18 Menopausal symptoms 07/17/2012 Immunizations Immunization Administration Dates Next Due Influenza Nasal, Unspecified Formulation 012 Surgical History Surgery Date Site/Laterality Comments HYSTERECTOMY 03/20/1978 - 03/19/1979 CHOLECYSTECTOMY 03/20/2002 - 03/19/2003 BLADDER SUSPENSION [id number] 6 surgeries on bladder OVARY REMOVAL 03/20/1994 - 03/19/1995 HAND SURGERY 03/20/2002 - 03/19/2003 UPPER GASTROINTESTINAL ENDOSCOPY 07/29/2002 TOTAL KNEE ARTHROPLASTY Bilateral CATARACT REMOVAL 04/05/2018 Left LEFT EYE CATARACT EXTRACTION WITH PHACOEMULSIFICATION AND INTRAOCULAR LENS; Surgeon: Arun Patel MD; Location: [facility]; Service: Ophthalmology Medical devices from this surgery are in the Medical Devices section. CATARACT REMOVAL 04/26/2018 Right RIGHT EYE CATARACT EXTRACTION WITH PHACOEMULSIFICATION AND INTRAOCULAR LENS; Surgeon: Arun Patel MD; Location: [facility]; Service: Ophthalmology Medical devices from this surgery are in the Medical Devices section. SHOULDER ARTHROPLASTY 04/10/2023 Shoulder/Left LEFT REVERSE TOTAL SHOULDER ARTHROPLASTY; Surgeon: Suhail Putnam MD; Location: [facility]; Service: Orthopedics Medical devices from this surgery are in the Medical Devices section. BREAST REDUCTION SURGERY Medical History Medical History Date Comments Hypertension Anxiety Meniere disease Arthritis Back pain History of UTI Diabetes mellitus (HCC) Skull fracture (HCC) 01/2024 Brain bleed (HCC) 01/2024 *3 Family History Medical History Relation Name Comments Diabetes Brother Heart Disease Brother Diabetes Father Heart Disease Father Hypertension Father No Known Problems Mother Breast Cancer Sister Diabetes Sister Hypertension Sister Anesth Problems Neg Hx Relation Name Status Comments Brother Father Mother Sister Social History Tobacco Use Types Packs/Day Years Used Date Smoking Tobacco: Former Cigarettes 1 20 0 03/20/1966 - 03/20/1986 Smokeless Tobacco: Never Tobacco Cessation:Counseling Given: No Alcohol Use Standard Drinks/Week Comments No 0 (1 standard drink = 0.6 oz pur e alcohol) Sexually Active Control Partners Comments Not Currently Comments No Sex and Gender Information Value Date Recorded Sex Assigned at Not on file Legal Sex Female 10:52 PM EDT Gender Identity Not on file Sexual Orientation Not on file Obstetrics History Para Term AB IAB SAB Ectopic Multiple Livin g Live Births 2 2 2 2 2 Date Outcome GA Total Labor Labor/2nd/3rd Weight Sex Type Anes PTL Krysta A1 A5 Name Clin Term M Vag-S pont Living Term M Vag-S pont Living Last Filed Vital Signs Vital Sign Reading Time Taken Comments Blood Pressure 122/64 06/24/2024 5:08 PM EDT Pulse 75 06/24/2024 5:08 PM EDT Temperature 36.6 C (97.9 F) 06/24/2024 5:08 PM EDT Respiratory Rate 18 06/24/2024 5:08 PM EDT Oxygen Saturation 99% 06/24/2024 5:08 PM EDT Inhaled Oxygen Concentration - - Weight 65.8 kg (145 lb) 06/24/2024 5:08 PM EDT Height 154.9 cm (5' 1 ) 06/24/2024 5:08 PM EDT Body Mass Index 27.4 06/24/2024 5:08 PM EDT Plan of Treatment Health Maintenance Due Date Last Done Comments Wellness Exam Medicare 02/28/1953 Diabetic Eye Exam 1967 Hepatitis C Screening 1967 Kidney Health: uACR 1967 Cologuard 1994 Colon Cancer Screening 1994 Colonoscopy 1994 FIT 1994 Sigmoidoscopy 1994 Virtual Colonography 1994 Lipids 07/24/2010 07/24/2009 Bone Density Screening 2014 Pneumococcal Vaccine 50+ (2 of 2 - PCV) 11/17/2018 11/17/2017 Hemoglobin A1c 09/21/2023 03/23/2023 COVID-19 Vaccine ( season) 2023 02/16/2023, 01/24/2022, 08/23/2021, Additional history exists RSV or 60+ (1 - 1-dose 75+ series) 02/28/2024 Kidney Health: eGFR 03/23/2024 03/23/2023, 05/23/2017, 08/03/2013, Additional history exists Influenza Vaccine (#1) 2024 , 01/01/2022, 01/07/2021, Additional history exists DTaP/TDaP/Td (3 - Td or Tdap) 02/04/2034 02/05/2024, 10/23/2020 Zoster Completed 09/19/2023, 07/19, 03/17/2014 Hepatitis B Vaccine Aged Out No longe r eligible based on patient's age to complete this topic Meningococcal B Vaccine Aged Out No l onger eligible based on patient's age to complete this topic Medical Devices Implanted Type Area Platen Press Feeder Device Identifier Shelf Expiration Date Model / Serial / Lot Lens Intraocular Preloaded 21.0 Diopter - [id number] Implanted:Qty: 1 on 04/05/2018 by Arun Patel MD at [facility] Left: Eye [facility]:SURG 10/17/2020 AU00T0.210 / [id number] / [id number] Lens Intraocular Preloaded 21.0 Diopter - [id number] Implanted:Qty: 1 on 04/26/2018 by Arun Patel MD at [facility] Right: Eye [facility] 11/17/2020 AU00T0.210 / [id number] / Baseplate 15mm Phil Fix Trab Mtl Shld Rev Strle - [id number] Implanted:Qty: 1 on 04/10/2023 by Suhail Putnam MD at [facility] Left: Shoulder FATOUMATA:FATOUMATA [id number] 001 02/17/2033 [id number] / / [id number] Component Glenosphere Trablr Mtl Reverse 3 Cynthia 36mm+0mm - [id number] Implanted:Qty: 1 on 04/10/2023 by Suhail Putnam MD at [facility] Left: Shoulder FATOUMATA:FATOUMATA [id number] 001 01/31/2033 [id number] / / [id number] Stem Hum 10mm Intop Flxb 130mm Trab Lpro 48d - [id number] Implanted:Qty: 1 on 04/10/2023 by Suhail Putnam MD at [facility] Left: Shoulder FATOUMATA:FATOUMATA [id number] 131 12/31/2032 [id number] / / [id number] Liner Acetabular +3 36mm Id Vivacit-E - [id number] Implanted:Qty: 1 on 04/10/2023 by Suhail Putnam MD at [facility] Left: Shoulder FATOUMATA:FATOUMATA [id number] 031 09/13/2027 [id number] / / [id number] Screw Bn 4mm 3.5mm 34mm Lynn Ncb -[address] St Hex Drv Ns - [id number] Implanted:Qty: 1 on 04/10/2023 by Suhail Putnam MD at [facility] Left: Shoulder FATOUMATA:FATOUMATA US 59.034 / / Screw Bn 4mm 3.5mm 36mm Lynn Ncb -[address] St Hex Drv Ns - [id number] Implanted:Qty: 1 on 04/10/2023 by Suhail Putnam MD at [facility] Left: Shoulder FATOUMATA:FATOUMATA 59.036 / / Cap Ortho 3.5/8mm Cynthia Lck Ti Ncb Ns Dist Fem - [id number] Implanted:Qty: 2 on 04/10/2023 by Suhail Putnam MD at [facility] Left: Shoulder FATOUMATA:FATOUMATA [id number] / / Procedures Procedure Name Priority Date/Time Associated Diagnosis Comments COMPREHENSIVE METABOLIC PANEL Routine 03/23/2023 3:54 PM EST Preop testing HEMOGLOBIN A1C Routine 03/23/2023 3:54 PM EST Hyperglycemia LIPID SCREEN Routine 07/24/2009 9:40 PM EDT from Last 3 Months or Most Recently Relevant to Health Maintenance Results * (ABNORMAL) HEMOGLOBIN A1C (03/23/2023 3:54 PM EST) Hgb A1C 6.2(H) 4.2 - 5.6 % 03/23/2023 4:54 PM EST [facility] Est. Avg Glucose 131 mg/dL 03/23/2023 4:54 PM EST [facility] Blood VENOUS BLOOD / Unknown Venipuncture / Unknown 03/23/2023 3:54 PM EST 03/23/2023 3:59 PM EST Narrative [facility] - 03/23/2023 4:54 PM EST REFERENCE RANGE: Normal: 4.0-5.6% Pre-diabetes: 5.7-6.4% Provisional diagnosis of diabetes: >6.4% Hgb F>10% and anything which shortens red cell survival, such as hemolytic anemia, or unstable hemoglobin variants such as HbSS, HbSC, or HbCC, will lower the HbA1c value associated with a given level of glycemic control. us Suhail Putnam MD CHEMISTRY ORDERABLES Final Result [facility] [address] [facility] , [place] [address] * (ABNORMAL) COMPREHENSIVE METABOLIC PANEL (03/23/2023 3:54 PM EST) Sodium 137 136 - 145 mmol/L 03/23/2023 4:29 PM EST [facility] Potassium 3.5 3.5 - 5.0 mmol/L 03/23/2023 4:29 PM EST [facility] Chloride 102 98 - 107 mmol/L 03/23/2023 4:29 PM EST [facility] Total CO2 24 22 - 29 mmol/L 03/23/2023 4:29 PM EST [facility] Anion Gap 11 7 - 16 mmol/L 03/23/2023 4:29 PM EST [facility] Calcium 9.7 8.8 - 10.4 mg/dL 03/23/2023 4:29 PM EST [facility] Glucose Lvl 107(H) 82 - 100 mg/dL 03/23/2023 4:29 PM EST [facility] BUN 16 8 - 23 mg/dL 03/23/2023 4:29 PM EST [facility] Creatinine 1.30 0.51 - 1.30 mg/dL 03/23/2023 4:29 PM EST [facility] Albumin 4.6 3.2 - 4.6 gm/dL 03/23/2023 4:29 PM EST [facility] Total Protein 6.9 6.4 - 8.3 gm/dL 03/23/2023 4:29 PM EST [facility] Bili Total 0.4 0.2 - 1.3 mg/dL 03/23/2023 4:29 PM EST [facility] ALT 16 <=41 U/L 03/23/2023 4:29 PM EST [facility] AST 20 <=40 U/L 03/23/2023 4:29 PM EST [facility] Alk Phos 61 36 - 123 U/L 03/23/2023 4:29 PM EST [facility] [employer] [facility] eGFR (CKD-EPIcr 2020) 43(L) >=60 mL/min/1.7 3 m2 03/23/2023 4:29 PM EST [facility] Comment:Estimated GFR was ca lculated using the CKD-EPIcr (2020) equation refit without race. The equation is recommended by the National Kidney Foundation - [place] [employer] of Nephrology Task Force. Blood VENOUS BLOOD / Unknown Venipuncture / Unknown 03/23/2023 3:54 PM EST 03/23/2023 3:59 PM EST Suhail Putnam MD CHEMISTRY ORDERABLES Final Result Performing Organization Address City/[facility]/ZIP Co de Phone Number [facility] [employer] [facility] [address] [facility], [place] [address] [facility] [address] [address] * (ABNORMAL) LIPID SCREEN (07/24/2009 9:40 PM EDT) Cholesterol 199 <=200 mg/dL [facility] Comment: < 200 Desirable 200 - 239 Borderline High >= 240 High Triglyceride 223(H) <=150 mg/dL [facility] Comment: < 150 Normal 150 - 199 Borderline High 200 - 499 High >= 500 Very High HDL 42 >=40 mg/dL [facility] Comment: > 60 Optimal 40 - 60 Acceptable < 40 Low LDL Calculated 112 mg/dL [facility] Comment: < 100 Optimal 100 - 129 Near or above optimal 130 - 159 Borderline High 160 - 189 High >= 190 Very High Blood specimen (specimen) 07/24/2009 9:40 PM EDT 07/24/2009 9:40 PM EDT Narrative [facility] - 07/24/2009 10:40 PM EDT FAX [phone] us Sathish Lawton MD CHEMISTRY ORDERABLES Edited [facility] [address] [place] [address] from Last 3 Months or Most Recently Relevant to Health Maintenance Insurance MEDICARE PPO MR MEDICARE PPO MR [place] [phone] HUMAN MEDICARE PPO MR Care Teams Layout Designer Relationship Specialty Start Date End Date Sathish Lawton MD PCP - General Family Medicine 06/03/11
== END 2024-10-30 23:59 | disposition home or self-care (01) ==
LOC: LAB.DROPOF 11-01 11:21
PROVIDERS: PCP Family Medicine; Visit Provider Family Medicine
DX: E11.9 Type 2 diabetes mellitus without complications (principal)
CPT/HCPCS: 80053; 82043; 82570

== ENCOUNTER 2025-02-07 07:31 | Outpatient (CLI) | payer MEDICARE, SELFPAY ==
--- OUTSIDE RECORDS SUMMARY | 2018-05-25 08:15 | XMS_ITS | Continuity of Care Document ---
Author Organization [facility] Address [address] [place] [address] Phone Care Team Providers Care Manager Audio Name Role Phone Arnoldokarthik OD, Светлана Unavailable Unavailable Allergies, Adverse Reactions, Alerts Substance Reaction Status Criticality No Known Allergies Active No Inform ation Medications Medication Instructions Dosage Effective Dates (start - stop) Status Comments moxifloxacin 0.5 % eye drops instill 1 drop by ophthalmic route 2 times every day into right eye - Active Ilevro 0.3 % eye drops,suspension instill 1 drop by ophthalmic route every day to the right eye - Active 3ML BOTTLEokay t o substitute for Prolensa 5ml QD or Bromsite Durezol 0.05 % eye drops instill 1 drop by ophthalmic route 2 times every day into the right eye - Active MAY SUBSITUTE PREDNISOLONE ACETATE 1% 1 bottle 5 ml Arthritis Pain Reliever 650 mg tablet,extended release take 2 tablet by oral route every 8 hours as needed swallowing whole with water. Do not break, crush, dissolve and/or chew. 1300 MG - Active Fish Oil 340 mg-1,000 mg capsule take 1 capsule by oral route every day - Active levocetirizine 5 mg tablet take 1 tablet by oral route every day in the evening 5 MG - Active Calcium 500 500 mg calcium (1,250 mg) chewable tablet as needed - Active simvastatin 40 mg tablet take 1 tablet by oral route every day in the evening 40 MG - Active propranolol ER 60 mg capsule,24 hr,extended release take 1 capsule by oral route 3 times every day 60 MG - Active clonidine HCl 0.2 mg tablet take 1 tablet by oral route every day 0.2 MG - Active estradiol 0.05 mg/24 hr weekly transdermal patch apply 1 patch by transdermal route every week cyclically, 3 weeks on and 1 week off 1.00 patch - Active ziprasidone 20 mg capsule take 1 capsule by oral route 2 times every day with food 20 MG - Active trazodone 100 mg tablet take 1 tablet by oral route 2 times every day after meals 100 MG - Active hydroxyzine HCl 25 mg tablet take 1 Tablet by oral route every hour 25 MG - Active tramadol 50 mg tablet take 1 tablet by oral route every day 50 MG - Active tizanidine 4 mg capsule take 1 capsule by oral route 2 times every day 4 MG - Active Prilosec OTC 20 mg tablet,delayed release take 1 by oral route every day 1 - Active venlafaxine ER 150 mg capsule,extended release 24 hr take 1 capsule by oral route every day 150 MG - Active Procedures Procedure Date Post Op Visit Cataract Post Op Visit Cataract Ophthalmic Biometry W Iol Calculation Pr of Comp Unilateral Extracapsular Cataract Removal With IOl Manual Or Security Researcher Post Op Visit Cataract Post Op Visit Cataract Extracapsular Cataract Removal With IOl Manual Or Security Researcher OFFICE/OUTPATIENT VISIT, [facility] Ophthalmic Biometry W Iol Calculation Un ilateral ECHO EXAM OF EYE, THICKNESS Advance Directives Directive Yes / No Effective Date File Name No Information Encounters Encounter Description Practice Location Reason(s) For Visit Diagnoses Date Provider Providers Copied on Encounter [facility], [address] [place] [place], [address], [place] tel:[phone] [facility] Presence of intraocular lens 8-201 9 Rolfes Светлана. [address] [place], [place], [id number] , [place]. tel:[phone] Referring Provider: Jesse Tarango, [address] [place], [address]. tel:[phone] [facility], [address] [place], [address], [place] tel:[phone] [facility] [address] Presence of intraocular lens 9 Rolfes Светлана. [address], [place], [place], [id number] , [place]. tel: [phone] Referring Provider: Jesse Tarango, [address] [place], [address]. tel:[phone] [facility], [address] [place], [address], [place] tel: [phone] [facility] Age-related nuclear cataract, right eyeCortical age-related cataract, right eyeNuclear age-related cataract, both eyes 9 [facility]. [address], [address], [place], [place], [id number] . tel: [phone] Referring Provider: Jesse Tarango, [address] [place] [address], [address]. tel:[phone] [facility], [address], [place], [address], [place] tel: [phone] [facility] No Information 9 [facility]. [address], [address], [place], [place], [id number] . tel: [phone] [facility], [address] [place], [address], [place] tel: [phone] [facility] Presence of intraocular lens 9 Rolfes Светлана. [address], [place], [place], [id number] , [place]. tel: [phone] Referring Provider: Jesse Tarango, [address] [place], [address]. tel:[phone] [facility], [address], [place], [address], [place] tel: [phone] [facility] Presence of intraocular lens 9 Rolfes Светлана. [address] [place], [id number] , [place]. tel:[phone] Referring Provider: [place], [address]. tel:[phone] [facility], [address] [place], [address], tel:[phone] [facility] Cortical age-related cataract, bilateralAge-rela verna nuclear cataract, left eyeCortical age-related cataract, left eye 9 [facility]. [address] [place] [address], [address], [place], [place], [id number] . tel: [phone] Referring Provider: [place], [address]. [phone] OFFICE/OUTPA TIENT VISIT, [facility] Physician [facility], [address] [place], [place], [facility], [phone] [facility] decreased vision (chief complaint) Nuclear age-related cataract, both eyesCortical age-related cataract, bilateralRegular astigmatism of both eyes [facility]. [address], [address], [place], [place], [id number] . tel: [phone] Referring Provider: [place], [address]. [phone] Family History Family Member Type Diagnosis Age At Onset Problem (finding) Family history of breas t cancer Father Problem (finding) hypertension Father Problem (finding) cataract Father Problem (finding) Diabetes mellitus Problem (finding) No family history of Gl aucoma Problem (finding) No family history of Re tinal disease Payers Payer name Insurance type Covered constitution party ID Authoriza tion(s) [employer] [id number] Social History Type Description Quantity Date Captured Comments Sex Female Smoking Status No Information Chief Complaint And Reason For Visit No Information Reason For Referral Reason For Referral No Information Plan Of Treatment Date Type Action Status Patient Education hydroxyzine HCl 25 mg t ablet completed History Of Present Illness Encounter Date Complaint History Of Prese nt Illness decreased vision The 67 year old female presents for evaluation of decreased vision in the right and left eyes. Vision is blurry OS>OD. Patient states she does not have a cataract OD. Patient has difficulty reading small print even with glasses on . Patient is bothered by glare from headlights while driving at night. History of floaters. Denies flashes and eye pain. Patient using refresh as needed. No history CL. Patient is allergic to all antibiotics except: Doxycycline hyclate and clindamycin HCL. Referred by Dr. Tarango. Functional Status Date Functional Assessmen t No Information Instructions Date Instruction Additional Infor shaunna - RTC PRN Advised yearly eye exa ms with local OD. Related to PO PCIOL - Return in 3 -4 weeks Related t o PO PCIOL - For surgery as darlin eduled 04/26/18 phaco/IOL 2nd eye OD - indicated per symptoms on VF-14 Related to PO PCIOL - Return in 1 week. Related to P O PCIOL Impression/Plan Assessments Type Assessment Date No Information Patient Care Teams Name Effective Dates (start - stop) Status Members No Information
--- NOTE | 2025-02-07 07:15 | CT_ITS ---
FINAL REPORT TECHNIQUE: Multiple axial CT angiography images were performed from the foramen magnum to the vertex before and during IV contrast administration. This study was performed with techniques to keep radiation doses as low as reasonably achievable (ALARA). Individualized dose reduction techniques using automated exposure control or adjustment of mA and/or kV according to the patient's size were employed. CLINICAL HISTORY: .fall 1 year ago, memory loss FINDINGS: CT HEAD: There is decreased attenuation in the deep white matter. There is age-appropriate atrophy. No acute intracranial hemorrhage or large acute cortical infarct. The brain volume is normal for the patient's age. Ventricles are of bracket normal in size and configuration. No midline shift. The basal cisterns are patent. CTA HEAD: The major intracranial arterial system is patent without hemodynamically significant stenosis or major vessel occlusion.No aneurysm is identified. IMPRESSION: No acute intracranial hemorrhage or large acute cortical infarct. No evidence of vascular injury, aneurysm, hemodynamically significant stenosis or major vessel occlusion of the intracranial arterial system. Reviewed, Interpreted and Dictated by Orlin Segal MD Transcribed by Tracey Polanco Authenticated and [facility]
--- OUTSIDE RECORDS SUMMARY | 2025-02-07 07:34 | XMS_ITS | Clinical Summary ---
Author Organization [facility] Address One [facility] [address] [address] Phone Care Team Providers Care Position Description Manager Name Role Phone Sathish Lawton MD [...] 03/19/1979 CHOLECYSTECTOMY 03/20/2002 - 03/19/2003 BLADDER SUSPENSION [id number] 6 surgeries on bladder OVARY REMOVAL 03/20/1994 - 03/19/1995 HAND SURGERY 03/20/2002 - 03/19/2003 UPPER GASTROINTESTINAL ENDOSCOPY 07/29/2002 TOTAL KNEE ARTHROPLASTY Bilateral CATARACT REMOVAL 04/05/2018 Left LEFT EYE CATARACT EXTRACTION WITH PHACOEMULSIFICATION AND INTRAOCULAR LENS; Surgeon: Arun Patel MD; Location: [facility]; Service: Ophthalmology Medical devices from this surgery are in the Medical Devices section. CATARACT REMOVAL 04/26/2018 Right RIGHT EYE CATARACT EXTRACTION WITH PHACOEMULSIFICATION AND INTRAOCULAR LENS; Surgeon: Arun Patel MD; Location: [facility]; Service: Ophthalmology Medical devices from [...] Labor Labor/2nd/3rd Weight Sex Type Anes PTL Krytsa A1 A5 Name Clin Term M Vag-S [...] PCV) 11/17/2018 11/17/2017 Hemoglobin A1c 09/21/2023 03/23/2023 RSV or 60+ (1 - 1-dose 75+ series) 02/28/2024 Kidney Health: eGFR 03/23/2024 03/23/2023, 05/23/2017, 08/03/2013, Additional history exists COVID-19 Vaccine (2024- season) 2024 02/16/2023, 01/24/2022, 08/23/2021, Additional history exists Influenza Vaccine (#1) 2024 [...] this topic Medical Devices Implanted Type Area Manual Plate Filler Device Identifier Shelf Expiration Date Model / Serial / Lot Lens Intraocular Preloaded 21.0 Diopter - [id number] Implanted:Qty: 1 on 04/05/2018 by Arun Patel MD at [facility] Left: Eye [facility] 10/17/2020 AU00T0.210 / [id number] / [id number] Lens Intraocular Preloaded 21.0 Diopter - [id number] Implanted:Qty: 1 on 04/26/2018 by Arun Patel MD at [facility] Right: Eye [facility] 11/17/2020 AU00T0.210 / [id number] / Baseplate 15mm Phil Fix Trab Mtl Shld Rev Strle - [id number] Implanted:Qty: 1 on 04/10/2023 by Suhail Putnam MD at [facility] Left: Shoulder FATOUMATA:FATOUMATA [id number] 001 02/17/2033 [id number] / / [id number] Component Glenosphere Trablr Mtl Reverse 3 Cynthia 36mm+0mm - [id number] Implanted:Qty: 1 on 04/10/2023 by Suhail Putnam MD at [facility] Left: Shoulder FATOUMATA:FATOUMATA [id number] 001 01/31/2033 [id number] / / [id number] Stem Hum 10mm Intop Flxb 130mm Trab Lpro 48d - [id number] Implanted:Qty: 1 on 04/10/2023 by Suhail Putnam MD at [facility] Left: Shoulder FATOUMATA:FATOUMATA [id number] 131 12/31/2032 [id number] / / [id number] Liner Acetabular +3 36mm Id Vivacit-E - [id number] Implanted:Qty: 1 on 04/10/2023 by Suhail Putnam MD at [facility] Left: Shoulder FATOUMATA:FATOUMATA [id number] 031 09/13/2027 [id number] / / [id number] Screw Bn 4mm 3.5mm 34mm Lynn Ncb -[address] St Hex Drv Ns - [id number] Implanted:Qty: 1 on 04/10/2023 by Suhail Putnam MD at [facility] Left: Shoulder FATOUMATA:FATOUMATA US 59.034 / / Screw Bn 4mm 3.5mm 36mm Lynn Ncb -64 St Hex Drv Ns - [id number] Implanted:Qty: 1 on 04/10/2023 by Suhail Putnam MD at [facility] Left: Shoulder FATOUMATA:FATOUMATA 59.036 / / Cap Ortho 3.5/8mm Cynthia Lck Ti Ncb Ns Dist Fem - [id number] Implanted:Qty: 2 on 04/10/2023 by Suhail Putnam MD at [facility] Left: Shoulder FATOUMATA:FATOUMATA [id number] / / Procedures Procedure Name Priority Date/Time [...] 5.6 % 03/23/2023 4:54 PM EST [facility] Est. Avg Glucose 131 mg/dL 03/23/2023 4:54 PM EST [facility] Blood VENOUS BLOOD / Unknown Venipuncture / Unknown 03/23/2023 3:54 PM EST 03/23/2023 3:59 PM EST Narrative [email or web address] - 03/23/2023 4:54 PM EST REFERENCE RANGE: [...] Result [facility] [address] [facility] , [place] [address] * (ABNORMAL) COMPREHENSIVE METABOLIC PANEL [...] - 123 U/L 03/23/2023 4:29 PM EST [facility] eGFR (CKD-EPIcr 2020) 43(L) >=60 mL/min/1.7 3 m2 03/23/2023 4:29 PM EST [facility] Comment:Estimated GFR was ca lculated using the CKD-EPIcr (2020) equation refit without race. The equation is recommended by the National Kidney Foundation - [place] Society of Nephrology Task Force. Blood VENOUS BLOOD / Unknown Venipuncture / Unknown 03/23/2023 3:54 PM EST 03/23/2023 3:59 PM EST Suhail Putnam MD CHEMISTRY ORDERABLES Final Result Performing Organization Address City/[facility]/ZIP Co de Phone Number [facility] [address] [facility], [place] [address] [facility] [address] [place] [address] * (ABNORMAL) LIPID SCREEN (07/24/2009 9:40 PM EDT) Cholesterol 199 <=200 mg/dL [facility] Comment: < 200 Desirable 200 - 239 Borderline High >= 240 High Triglyceride 223(H) <=150 mg/dL [facility] Comment: < 150 Normal 150 - 199 Borderline High 200 - 499 High >= 500 Very High HDL 42 >=40 mg/dL [facility] Comment: > 60 Optimal 40 - 60 Acceptable < 40 Low LDL Calculated 112 mg/dL [facility] Comment: < 100 Optimal 100 - 129 Near or above optimal 130 - 159 Borderline High 160 - 189 High >= 190 Very High Blood specimen (specimen) 07/24/2009 9:40 PM EDT 07/24/2009 9:40 PM EDT Narrative [facility] - 07/24/2009 10:40 PM EDT FAX [phone] us Sathish Lawton MD CHEMISTRY ORDERABLES Edited [facility] [address] [place] [address] from Last 3 Months or Most Recently Relevant to Health Maintenance Insurance MEDICARE PPO MR MEDICARE PPO MR [place] [id number] HUMAN MEDICARE PPO MR Care Teams Position Description Manager Relationship Specialty Start Date End Date Sathish Lawton MD PCP - General Family Medicine 06/03/11
--- OUTSIDE RECORDS SUMMARY | 2025-02-07 07:34 | XMS_ITS | Clinical Summary ---
Author Organization Healthcare Address [address] [place] [address] Care Team Providers Care Office Rn Name Role Phone Ji Hameed MD Primary Care Provider [phone] Allergies Active Allergy Reactions Criticality Noted Date [...] diet, patient on no insulin at home Hyperthyroidism 02/06/2024 Overview (02/06/2024): Restart home meds [...] some TBI symptoms Outpatient PMR follow up Resolved Problems Problem Noted Date Diagnosed Date Resolved Date BLAIR (acute kidney injury) 02/06/2024 Overview (02/07/2024): Encourage fluids, recheck Mild hyperkalemia Resolved Social History Tobacco Use Types Packs/Day Years [...] any time in the past 12 m [facility], were you homeless or living in a long-term (including now)? No 02/06/2024 CAGE ASSESSMENT Answer [...] drink first t coleman in the morning ([employer]) to steady your nerves or to get [...] A1C 1950 [facility]-Medicare Annual Wellness (AWV) 1950 [facility]-/Child/Adol SDOH Screenings 1949 Diabetes: Dental Exam 1959 CT Colonography 1994 Colonoscopy 1994 FIT-DNA 1994 FIT 1994 FOBT 1994 Sigmoidoscopy 1994 [facility]-Colorectal Cancer Screening 1994 [facility]-Pneumococcal Vaccine: 50+ Years (2 of 2 - PCV) 11/17/2018 11/17/2017 [facility]-RSV Vaccine: 60+ Years or (1 - 1-dose 75+ series) 02/28/2024 [facility]- SDOH Screenings 08/05/2024 [facility]-Adult SDOH Screenings 08/05/2024 02/06/2024 [id number] Vaccine ( season) 2024 02/16/2023, 01/24/2022, 08/23/2021, Additional history exists [facility]-Influenza Vaccine (#1) 11/18/202402/16, 01/01/2022, 01/07/2021, Additional [...] Antibody Negative Negative 02/05/2024 8:24 PM EST [facility] Blood Venous blood specimen / Unknown Venipuncture / Unknown 02/05/2024 7:16 PM EST 02/05/2024 7:41 PM EST us Chun Basilio MD LAB BLOOD ORDERABLES Final Re sult [facility] [address] [place] [address] from Last 3 Months or Most Recently Relevant to Health Maintenance Insurance [employer] MEDICARE Advance Directives * Full Code (Latest Code Status on File) Date Activated Date Inactivated Comments 02/05/2024 11:05 PM 02/07/2024 6:25 PM Question Answer Comments Patient has decision-making capacity? Yes Care Teams Office Rn Relationship Specialty Start Date End Date Ji Hameed MD [address] [place] [address] PCP - General 02/05/24
--- OUTSIDE RECORDS SUMMARY | 2025-02-07 07:34 | XMS_ITS | Clinical Summary ---
Author Organization [facility] Address [address] [place] [id number] Care Team Providers Care Correctional Program Officer Name Role Phone Sathish Lawton MD Primary Care Provider [phone] Chun Rubalcava MD Unavailable [phone] Allergies Active Allergy Reactions Criticality Noted [...] Colorectal Cancer Screening 1949 FIT 1949 Lipid Monitoring 1966 Tetanus Vaccination (Every 10 Years) 1967 Hepatitis C Virus (HCV) Screening 1970 Pneumococcal Vaccine: 50+ Years (1 of 1 - PCV) 999 Zoster-RZV(Shingrix) (1 of 2) 1999 Fall Risk Assessment 2014 Osteoporosis Screening 2014 RSV Vaccines (1 - 1-dose 75+ series) 02/28/2024 Advance Care Planning 03/20/2024 Depression Screening 03/20/2024 COVID-19 Vaccine ( - 2024- season) 2024 Influenza Vaccination (#1) 2024 Medical Devices Implanted Type Area Industrial Psychologist Device Identifier Shelf Expiration Date Model / Serial / Lot Smartset Mv 40g - Eo Implanted:Qty: 2 on 07/31/2013 by Chun Rubalcava MD at [facility] Left: Knee * J \T\ J DEPUY 03/18/2015 [id number] / / [id number] Cmpnt Tib Tray Nonpor Sz 2.5 Implanted:Qty: 1 on 07/31/2013 by Chun Rubalcava MD at [facility] Left: Knee * J \T\ J DEPUY 04/18/2018 1294-33-125 / / [id number] [employer] Jovan Fem Sz 2.5 Left Implanted:Qty: 1 on 07/31/2013 by Chun Rubalcava MD at [facility] Left: Knee * USE JJ DEPU 05/17/202340-250 / / [id number] Cmpnt Pat Oval 3 Post 35mm Implanted:Qty: 1 on 07/31/2013 by Chun Rubalcava MD at [facility] Left: Knee * J \T\ J DEPUY 04/18/2018 / / [id number] [facility] Tib Stblz Rot Sz 2.5 12.5 Implanted:Qty: 1 on 07/31/2013 by Chun Rubalcava MD at [facility] Left: Knee * J \T\ J DEPUY 03/18/2018 96 / / [id number] Knee Total Con Tier 2 Depuy Implanted:Qty: 1 on 07/31/2013 by Chun Rubalcava MD at [facility] Left: Knee * J \T\ J DEPUY KNEES TIER 2 / / TOTAL KNEE Smartset Mv 40g - Eo Implanted:Qty: 2 on 01/15/2014 by Chun Rubalcava MD at [facility] Right: Knee * J \T\ J DEPUY 07/18/2015 [id number] / / [id number] Cmpnt Pat Oval 3 Post 35mm Implanted:Qty: 1 on 01/15/2014 by Chun Rubalcava MD at [facility] Right: Knee * J \T\ J DEPUY 07/17/2018 / / [id number] [facility] Tib Stblz Rot Sz 2.5 10mm Implanted:Qty: 1 on 01/15/2014 by Chun Rubalcava MD at [facility] Right: Knee * J \T\ J DEPUY 09/16/2018 / / [id number] Sigma Femoral Posterior Stabilized Cemented Size 2.5 Right Implanted:Qty: 1 on 01/15/2014 by Chun Rubalcava MD at [facility] Right: Knee * J \T\ J DEPUY 11/17/202250-250 / / [id number] Cmpnt Tib Tray Nonpor Sz 2 Implanted:Qty: 1 on 01/15/2014 by Chun Rubalcava MD at [facility] Right: Knee * J \T\ J DEPUY 08/17/2018 1294-33-120 / / [id number] Knee Total Con Tier 1 Depuy Implanted:Qty: 1 on 01/15/2014 by Chun Rubalcava MD at [facility] Right: Knee * J \T\ J DEPUY KNEES TIER 1 / / TOTAL KNEE Advance Directives For more information, please contact: [phone] Documents on File Type Date Recorded 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 [place] [address] Orthopedic Surgery 03/27/22
[2025-02-07 08:12] LABS: Blood Urea Nitrogen 21 mg/dl (7-17); Creatinine,Serum 1.30 mg/dl (0.52-1.04); Estimated Glomerular Filt Rate 40 ml/min (>60); GFR (African American) 48 ML/MIN (>60)
[2025-02-07] MEDS: SODIUM CHLORIDE 0.9% 10ML SYR (RAD ONLY) 10 ML IV (08:51)
[2025-02-07] MEDS: IOPAMIDOL-370 (76%);100ML BOTTLE 80 ML IV (08:51)
[2025-02-07] MEDS: 0.9 % SODIUM CHLORIDE 50 ML VIAL IV (08:51)
== END 2025-02-07 23:59 | disposition home or self-care (01) ==
LOC: RAD 07:32
PROVIDERS: PCP Family Medicine; Visit Provider Family Medicine
DX: S02.119A Unspecified fracture of occiput, initial encounter for closed fracture (principal); R41.3 Other amnesia; W19.XXXA Unspecified fall, initial encounter
CPT/HCPCS: 36415; 70496; 82565; 84520; Q9967